=== PATIENT | female | born 1960 | race Caucasian/White ===

== ENCOUNTER 2017-11-26 11:23 | Inpatient (IN) | payer MEDICARE ==
[~2017-11-26] VITALS: Ht 165.1 cm; Wt 88.0 kg
--- NOTE | 2017-11-26 12:25 | Diagnostic Imaging Report ---
PROCEDURE: X-RAY CHEST, TWO VIEWS COMPARISON: None. INDICATIONS: COUGH SINCE DIPIKA FINDINGS: The lungs are reasonably well inflated. There are patchy consolidations in the right lower lung and perihilar region of the left lung. No pleural effusion or pneumothorax. Heart size is normal. No acute osseous abnormalities. CONCLUSION: Patchy bilateral consolidations suggest multifocal pneumonia in the clinical setting of persistent cough. Followup chest radiograph in 8 weeks is suggested to document resolution. Dictated by: Julien Gordillo M.D. on 11/26/2017 at 12:33 Electronically approved by: Julien Gordillo M.D. on 11/26/2017 at 12:33
[2017-11-26] MEDS ORDERED: AZITHROMYCIN 500MG/NS 250 ML 250 ML IV STA (12:26)
[2017-11-26] MEDS ORDERED: CEFTRIAXONE SOD 1 GM VIAL IV ONE (12:30)
[2017-11-26 13:02] LABS: BASOPHILS % 0.2 % (0.0-1.0); EOSINOPHILS # (AUTO) 0.1 (0.0-0.4); EOSINOPHILS % 0.5 % (0.0-6.0); HEMATOCRIT 34.7 % (34.2-44.1); HEMOGLOBIN 11.8 g/dL (12.0-16.0); LYMPHOCYTES # (AUTO) 2.3 (1.0-3.2); LYMPHOCYTES % 14.8 % (18.0-39.1); MEAN CORPUSCULAR HEMOGLOBIN 26.5 pg (28-32); MONOCYTES # (AUTO) 1.6 (0.2-0.8); MONOCYTES % 10.4 % (4.4-11.3); NEUTROPHILS # (AUTO) 11.3 (2.1-6.9); NEUTROPHILS % 73.7 % (38.7-80.0); PLATELET COUNT 517 x10e3/uL (140-360); RED BLOOD COUNT 4.45 x10e6/uL (3.6-5.1); RED CELL DISTRIBUTION WIDTH 14.5 % (11.7-14.4)
[2017-11-26 13:23] LABS: ALANINE AMINOTRANSFERASE 65 IU/L (0-55); ALBUMIN 2.6 g/dL (3.5-5.0); ALBUMIN/GLOBULIN RATIO 0.4 (0.8-2.0); ALKALINE PHOSPHATASE 104 IU/L (40-150); ANION GAP 15.8 mmol/L (8-16); BLOOD UREA NITROGEN 10 mg/dL (7-26); BUN/CREATININE RATIO 13 (6-25); CALCIUM 9.7 mg/dL (8.4-10.2); CARBON DIOXIDE 19 mmol/L (22-29); CHLORIDE 103 mmol/L (98-107); CREATININE, SERUM 0.75 mg/dL (0.57-1.11); EST GLOMERULAR FILTRATION RATE > 60 ML/MIN (60-); GLUCOSE 122 mg/dL (74-118); SODIUM 135 mmol/L (136-145)
[2017-11-26 13:25] LABS: POTASSIUM 2.8 mmol/L (3.5-5.1)
[2017-11-26] MEDS ORDERED: AZITHROMYCIN 500MG/SOD CHL 0.9% 250ML BAG IV SCH (14:00)
[2017-11-26] MEDS: CEFTRIAXONE SOD 1 GM VIAL IV SCH (14:59)
[2017-11-26] MEDS: SODIUM CHLORIDE 0.9% 1000ML 1,000 ML IV SCH ×2 (14:59→22:45)
[2017-11-26] MEDS: AZITHROMYCIN 500MG/NS 250 ML 250 ML IV SCH (14:59)
[2017-11-26 15:34] LABS: LYMPHOCYTES % (MANUAL) 15 % (19-48); MONOCYTES % (MANUAL) 12 % (3.4-9.0); NEUTROPHILS % (MANUAL) 73 % (40-74); PLATELET ESTIMATE SLIGHTLY INCREASED; RBC MORPHOLOGY COMMENT NORMAL
[2017-11-26] MEDS ORDERED: POTASSIUM CHLORIDE 20 MEQ TAB CR PO STA (16:32)
[2017-11-26] MEDS: POTASSIUM CHLORIDE 20 MEQ TAB CR PO SCH (16:34)
[2017-11-26] MEDS ORDERED: STRIBILD TABLE1 EACH PO (18:39)
[2017-11-26] MEDS ORDERED: TOPAMAX25 MG PO (18:39)
[2017-11-26] MEDS ORDERED: LATUDA20 MG PO (18:39)
[2017-11-26] MEDS ORDERED: PROZAC20 MG PO (18:39)
[2017-11-26] MEDS ORDERED: ULTRAM50 MG PO (18:39)
[2017-11-26] MEDS ORDERED: OMEPRAZOLE40 MG PO (18:39)
[2017-11-26] MEDS ORDERED: CRESTOR10 MG PO (18:39)
[2017-11-26] MEDS ORDERED: CELEBREX100 MG PO (18:39)
[2017-11-26] MEDS ORDERED: TIZANIDINE HCL4 MG PO (18:39)
[2017-11-26] MEDS ORDERED: AMBIEN5 MG PO (18:39)
--- NOTE | 2017-11-26 19:40 | Diagnostic Imaging Report ---
CT chest without enhancement CPT code: 03691 INDICATION: Pneumonia, HIV TECHNIQUE: Thin collimation axial images obtained from the thoracic inlet to the level of the diaphragm without intravenous contrast. RADIATION DOSE: Total DLP: 458.6 mGy*cm Estimated effective dose: (DLP x 0.015 x size factor) mSv CTDIvol has been reviewed. It is below the limits set by the Radiation Protocol Committee (RPC). COMPARISON: Chest x-ray 1203 hours. CHEST FINDINGS: Lymph nodes: No enlarged axillary, supraclavicular lymph nodes. Mediastinal lymph nodes measure up to 8 x 13 mm. Hilar lymphadenopathy cannot be assessed given the lack of intravenous contrast. Thyroid: Normal in size without mass in the visualized parenchyma.. Mediastinum: The heart is normal in size. There is a trace pericardial effusion. The esophagus is normal. Lungs: Right: Multifocal groundglass airspace opacities throughout the lung. There is mild bronchiectasis in the affected areas. There is mild reticulation in the lung periphery particularly in the affected areas.. Left: Multifocal groundglass airspace opacities are present particularly in the upper lobe and lingula. As with the right lung, there is mild bronchiectasis in the affected areas as well as subpleural reticulation. Pleura: No pleural effusion or pleural based mass. ABDOMEN FINDINGS: No mass or lymphadenopathy in the visualized upper abdomen. Bones: No focal osseous lesions. There are mild degenerative changes of the spine. IMPRESSION: 1. Multifocal pulmonary opacities are suggestive of pneumocystis jirovecii given the patient's history of HIV. 2. No significant lymphadenopathy. Signed by: Dr. Haley Walker MD on 11/26/2017 7:37 PM
[2017-11-26] MEDS: IPRATROPIUM BROMIDE 0.02% 2.5 ML NEB NEB SCH ×2 (20:33→20:34)
[2017-11-26] MEDS: ALBUTEROL SULF 0.083% NEB SOLN 3 ML NEB NEB SCH (20:33)
--- NOTE | 2017-11-26 21:28 | Consultation ---
DATE OF CONSULTATION: November 26, 2017 REASON FOR CONSULTATION: Pneumonia. Thank you so much for asking me to see this patient. HISTORY OF PRESENT ILLNESS: This patient is a 57-year-old female with history of HIV. She is being followed by [facility]. She comes in with few days' history of fever, chills, cough. Patient came to the emergency room where she is being admitted. She is telling me her CD4 cell count is 1200. She is taking antiretroviral medication. She is telling me she has history of diabetes, but she said that she lost weight and since then she is doing good. PAST SURGICAL HISTORY: Hysterectomy. Back surgery. ALLERGIES: NKA. SOCIAL HISTORY: There is no smoking drug abuse or alcohol abuse. REVIEW OF SYSTEMS: GENERAL: At the present time generally she is not feeling well, getting fevers and chills. HEENT: There is no headache, or visual changes, hearing changes. GI: There is no nausea and no vomiting. No diarrhea CARDIAC: There is no arrhythmia. NEUROLOGIC: No seizure activity. She is having shortness of breath and cough. All other systems are within normal limits otherwise. LABORATORY DATA: Reviewed. Chart reviewed. White count 15.3, hemoglobin 11, hemoglobin 34. Sodium 135, potassium 2.8. Influenza A and B were negative. Chest x-ray shows patchy bilateral consolidations. PHYSICAL EXAMINATION: GENERAL: She is alert, oriented and does not seem to be in any acute distress. VITALS: Stable, currently afebrile. HEENT: She is not icteric. NECK: Supple. CHEST: Few crackles bilaterally. COR: S1 and S2. ABDOMEN: Soft. IMPRESSION: Pneumonia in a patient with HIV and AIDS, community acquired. Concerned about pneumocystis carinii pneumonia. I agree with the choice of antibiotic of Rocephin and azithromycin. Will add Bactrim. Will get a CD4 cell count. Will follow with you. Thank you for asking me to see this patient. Job#: [id number]
[2017-11-26] MEDS: TRIMETHOPRIM/SULFAMETHOXAZOLE 160-800 MG TAB PO SCH (21:39)
[2017-11-27] MEDS: ALBUTEROL SULF 0.083% NEB SOLN 3 ML NEB NEB SCH ×7 (00:20→20:45)
--- NOTE | 2017-11-27 01:24 | History and Physical ---
CHIEF COMPLAINT: Pneumonia, fever, shortness of breath, and HIV. HISTORY: Patient is a 57-year-old female with a history of HIV. The patient is followed by [facility]. She came in with a history of 3-4 days of fever, chills and cough. The patient is in the emergency room and now has been admitted. She is waiting for a room in the hospital. The patient has a previous CD4 cell count of 1200. She is on antiretroviral medications. The patient has a history of diabetes, type 2 and hypertension. She is stable at this time. PAST MEDICAL HISTORY: Diabetes, type 2, HIV with CD4 count of 1200. PAST SURGICAL HISTORY: Hysterectomy and back surgery. SOCIAL HISTORY: Patient does not smoke or use alcohol. No regular drugs. ALLERGIES: NO KNOWN ALLERGIES. HOME MEDICATIONS: List is reviewed. REVIEW OF SYSTEMS: Increasing shortness of breath, fever and cough. PHYSICAL EXAMINATION VITAL SIGNS: Temperature is 99.9, blood pressure is 91/52, pulse rate is 96, respirations 18. GENERAL: The patient is not in acute distress. HEENT: Normocephalic, atraumatic and anicteric. NECK: Supple grossly. PULMONARY: Diminished breath sounds bilaterally with coarses. CARDIOVASCULAR: S1 and S2. Regular rate and rhythm. ABDOMEN: Soft. Positive bowel sounds. Grossly nontender. No distention. EXTREMITIES: No gross cyanosis or edema. NEUROLOGIC: No gross focal deficit. WBC 15.3, hemoglobin 11.8, hematocrit 34.7, and platelet is 517,000. Chemistry: Sodium is 135, potassium is 2.8, chloride 108, bicarb 19, BUN is 10, creatinine 0.7, glucose is 122. IMPRESSION 1. Sepsis with shock and low blood pressure: Intravenous fluid boluses. 2. History of human immunodeficiency virus. 3. Immunosuppressed stage. 4. Hypokalemia. PLAN: IV fluid boluses. Keep blood pressure up. IV antibiotics. Consultation with Dr. Shields. Resume home medications. Replace electrolytes. Repeat lab work. Job#: [id number] SD
[2017-11-27 01:25] LABS: ABG PH 7.5 (7.31-7.41)
[2017-11-27] MEDS: IPRATROPIUM BROMIDE 0.02% 2.5 ML NEB NEB SCH ×4 (03:58→17:30)
[2017-11-27 05:19] LABS: BASOPHILS % 0.3 % (0.0-1.0); EOSINOPHILS # (AUTO) 0.2 (0.0-0.4); EOSINOPHILS % 1.2 % (0.0-6.0); HEMATOCRIT 28.3 % (34.2-44.1); HEMOGLOBIN 9.5 g/dL (12.0-16.0); LYMPHOCYTES # (AUTO) 4.1 (1.0-3.2); LYMPHOCYTES % 30.7 % (18.0-39.1); MEAN CORPUSCULAR HEMOGLOBIN 26.3 pg (28-32); MEAN CORPUSCULAR HGB CONC 33.6 g/dL (31-35); MEAN CORPUSCULAR VOLUME 78.4 fL (81-99); MONOCYTES # (AUTO) 1.8 (0.2-0.8); MONOCYTES % 13.4 % (4.4-11.3); NEUTROPHILS # (AUTO) 7.2 (2.1-6.9); PLATELET COUNT 465 x10e3/uL (140-360); RED BLOOD COUNT 3.61 x10e6/uL (3.6-5.1); RED CELL DISTRIBUTION WIDTH 14.4 % (11.7-14.4)
[2017-11-27 05:34] LABS: ANION GAP 12.5 mmol/L (8-16); BLOOD UREA NITROGEN 6 mg/dL (7-26); BUN/CREATININE RATIO 9 (6-25); CALCIUM 8.7 mg/dL (8.4-10.2); CARBON DIOXIDE 18 mmol/L (22-29); CHLORIDE 109 mmol/L (98-107); CREATININE, SERUM 0.65 mg/dL (0.57-1.11); EST GLOMERULAR FILTRATION RATE > 60 ML/MIN (60-); GLUCOSE 117 mg/dL (74-118); MAGNESIUM 1.9 MG/DL (1.3-2.1); PHOSPHORUS 2.9 MG/DL (2.3-4.7); SODIUM 137 mmol/L (136-145)
[2017-11-27 05:39] LABS: POTASSIUM 2.5 mmol/L (3.5-5.1)
[2017-11-27] MEDS ORDERED: POTASSIUM CHLORIDE 20 MEQ TAB CR PO STA (05:43)
[2017-11-27] MEDS: TRIMETHOPRIM/SULFAMETHOXAZOLE 160-800 MG TAB PO SCH ×2 (05:53→14:12)
[2017-11-27] MEDS: SODIUM CHLORIDE 0.9% 1000ML 1,000 ML IV SCH ×3 (05:53→22:57)
[2017-11-27 05:57] LABS: THYROID STIMULATING HORMONE 0.706 uIU/mL (0.350-4.940)
[2017-11-27] MEDS: AZITHROMYCIN 500MG/NS 250 ML 250 ML IV SCH (09:45)
[2017-11-27] MEDS: POTASSIUM CHLORIDE 20 MEQ TAB CR PO SCH ×2 (09:45→17:08)
[2017-11-27] MEDS: CEFTRIAXONE SOD 1 GM VIAL IV SCH (14:12)
[2017-11-27] MEDS: ACETAMINOPHEN 325 MG TAB PO PRN (17:10)
[2017-11-27] MEDS: METHYLPREDNISOLONE SOD SUCC 40 MG/ML VIAL IV SCH (18:45)
--- NOTE | 2017-11-27 18:53 | Progress Note ---
DATE: November 27, 2017 SUBJECTIVE: Mrs. Alarcon says she is not feeling well. She is short of breath. Her laboratory data was reviewed. Her sodium 135, potassium 2.8, creatinine 0.7. Her cultures no growth so far. CT of the chest showing multifocal pulmonary opacities suggestive of pneumocystis jiroveci. IMPRESSION: Pneumocystis carinii. RECOMMENDATIONS: Will discontinue the Bactrim p.o. and switch her IV Bactrim. We will start steroid. May consult critical care. She may end up on a ventilator. Will follow with you. Job#: [id number]
[2017-11-27 21:10] VITALS: BP 104/67
[2017-11-27 21:15] VITALS: BP 104/67
--- NOTE | 2017-11-27 21:43 | Diagnostic Imaging Report ---
EXAM: CHEST SINGLE (PORTABLE), AP 1 view DATE: 11/27/2017 5:00 AM Time stamp on exam: 0617 hours INDICATION: Shortness of breath, pneumonia, cough COMPARISON: PA and lateral view of the chest November 26, 2017 FINDINGS: LINES/TUBES: None LUNGS: Stable airspace opacities bilaterally. PLEURA: No effusions or pneumothorax. HEART AND MEDIASTINUM: Normal size and contour. BONES AND SOFT TISSUES: No acute findings. IMPRESSION: Stable findings of multifocal atypical pneumonia. Signed by: Dr. Sagrario Kelly M.D. on 11/27/2017 9:39 PM
[2017-11-27] MEDS: ZOLPIDEM TARTRATE 5 MG TAB PO PRN (22:57)
[2017-11-27] MEDS: TRIMETHOPRIM/SULFAMETHOXAZOLE 160 MG in DEXTROSE 5% 250ML 250 ML IV SCH (22:57)
[2017-11-28] VITALS (8 sets, daily range): BP systolic 91–119; BP diastolic 62–84
[2017-11-28] MEDS: IPRATROPIUM BROMIDE 0.02% 2.5 ML NEB NEB SCH ×6 (00:15→22:55)
[2017-11-28] MEDS: ALBUTEROL SULF 0.083% NEB SOLN 3 ML NEB NEB SCH ×7 (00:15→22:55)
[2017-11-28] MEDS ORDERED: VANCOMYCIN 1GM/NS 250 ML 250 ML IV ONE (04:30)
[2017-11-28] MEDS: PIPER-TAZ 3.375 GM 50 ML IV SCH ×4 (05:30→23:49)
[2017-11-28] MEDS: SODIUM CHLORIDE 0.9% 1000ML 1,000 ML IV SCH ×2 (05:54→23:40)
[2017-11-28] MEDS: METHYLPREDNISOLONE SOD SUCC 40 MG/ML VIAL IV SCH ×2 (06:26→17:26)
[2017-11-28] MEDS: ACETAMINOPHEN 325 MG TAB PO PRN (06:40)
[2017-11-28] MEDS: TRIMETHOPRIM/SULFAMETHOXAZOLE 160 MG in DEXTROSE 5% 250ML 250 ML IV SCH ×3 (08:30→17:10)
[2017-11-28] MEDS ORDERED: STRIBILD PO SCH (09:00)
[2017-11-28] MEDS ORDERED: LURASIDONE HCL 60 MG PO SCH (09:00)
[2017-11-28] MEDS ORDERED: [UNRECOGNIZED DRUG - OTHER] PO SCH (09:00)
[2017-11-28] MEDS ORDERED: [UNRECOGNIZED DRUG - REMARK] PO SCH (09:00)
[2017-11-28 09:30] LABS: ABG HCO3 -8 mmol/L (23-28); ABG PCO2 30 mmHg (41-51); ABG PH 7.37 (7.31-7.41); ABG PO2 157 mmHg (80-105)
[2017-11-28] MEDS: PANTOPRAZOLE SOD 40 MG TABEC PO SCH ×2 (09:54→17:10)
[2017-11-28] MEDS: POTASSIUM CHLORIDE 20 MEQ TAB CR PO SCH ×2 (09:54→17:10)
[2017-11-28] MEDS: CELECOXIB 100 MG CAP PO SCH (09:57)
[2017-11-28] MEDS: OSELTAMIVIR PHOSPHATE 75 MG CAP PO SCH ×2 (09:57→17:11)
[2017-11-28] MEDS: TOPIRAMATE 25 MG TAB PO SCH ×3 (09:57→20:47)
[2017-11-28] MEDS: HEPARIN SOD (PORCINE) 5,000 UNIT/ML VIAL SC SCH ×2 (09:57→20:48)
[2017-11-28] MEDS: FLUOXETINE HCL 20 MG CAP PO SCH (09:57)
[2017-11-28] MEDS: TIZANIDINE HCL 4 MG TAB PO SCH ×2 (09:57→17:11)
[2017-11-28] MEDS: AZITHROMYCIN 500MG/NS 250 ML 250 ML IV SCH (10:11)
--- NOTE | 2017-11-28 10:36 | Diagnostic Imaging Report ---
PROCEDURE:CHEST SINGLE (PORTABLE) TECHNIQUE:Portable AP chest INDICATION:Pneumonia COMPARISON:[facility], DX, CHEST SINGLE (PORTABLE), 11/27/2017, 6:17. FINDINGS: See conclusion. CONCLUSION: 1. Progressive bilateral airspace and interstitial opacity suggesting worsening pulmonary edema and/or pneumonia. No gross cavitation. 2. Stable cardiomediastinal silhouette, with upper limits of normal heart size for technique. 3. No sizable pleural effusion. Dictated by: Tristin Cantu M.D. on 11/28/2017 at 10:44 Electronically approved by: Tristin Cantu M.D. on 11/28/2017 at 10:44
--- NOTE | 2017-11-28 10:51 | Consultation ---
DATE OF CONSULTATION: PULMONARY CONSULTATION Called because of respiratory distress requiring increasing amounts of nasal oxygen and nonrebreather mask and subsequently BiPAP. She was seen this morning. She is comfortable on BiPAP, and has difficulty talking for long periods of time. Saturations are 100%. She has a history of HIV/AIDS diagnosed in 2006. Followed at [facility]. She presented with fever and cough. She thought she had the flu. Her pnqann-pm-cyo was sick and her daughter is becoming sick. She also had diarrhea. History of smoking. MEDICATIONS: Include Celebrex, Prilosec, Stribild, Prozac, Latuda, omeprazole, Crestor, tizanidine, Topamax, tramadol, and sulfadine. She has a history of CD4 count recently of 1200, history of diabetes, now controlled with diet, hypertension, hyperlipidemia. She had a hysterectomy and back surgery. Promises to quit smoking. Was hypotensive on admission. Received fluid boluses. PHYSICAL EXAMINATION GENERAL: Is anxious but comfortable. Able to converse. VITALS: Temperature 99, pulse 108, respirations 32, blood pressure 119/80. HEENT: Head is normocephalic and atraumatic. LUNGS: Bilateral rales. HEART: Regular rhythm. ABDOMEN: Nontender. EXTREMITIES: Nonedematous. She is on BiPAP. There are no ICU beds at this time. She may require intubation and mechanical ventilator support. She wishes to defer that at this time, but it is agreeable should it be necessary to save her life. Bronchoscopy is a consideration, but she will likely require mechanical ventilation afterwards. As I said, there are no ICU beds. Will broaden antibiotic cover. Complete influenza. Check stool studies. Add Zosyn and 1 dose of vancomycin. Discussed with Dr. Shields. Currently, on IV Bactrim for presumed PCP pneumonia. Thank you for this kind referral. Job#: [id number] AL
[2017-11-28 13:21] LABS: ANION GAP 11.1 mmol/L (8-16); BLOOD UREA NITROGEN < 5 mg/dL (7-26); CARBON DIOXIDE 19 mmol/L (22-29); CHLORIDE 111 mmol/L (98-107); CREATININE, SERUM 0.66 mg/dL (0.57-1.11); EST GLOMERULAR FILTRATION RATE > 60 ML/MIN (60-); GLUCOSE 179 mg/dL (74-118); POTASSIUM 4.1 mmol/L (3.5-5.1); SODIUM 137 mmol/L (136-145)
[2017-11-28 13:27] LABS: BUN/CREATININE RATIO 8 (6-25)
[2017-11-28] MEDS: TRAMADOL HCL 50 MG TAB PO PRN ×2 (15:02→22:11)
[2017-11-28] MEDS: SIMVASTATIN 20 MG TAB PO SCH (20:47)
[2017-11-29] VITALS (8 sets, daily range): BP systolic 96–112; BP diastolic 52–67
[2017-11-29] MEDS: TRIMETHOPRIM/SULFAMETHOXAZOLE 160 MG in DEXTROSE 5% 250ML 250 ML IV SCH ×3 (00:35→16:38)
[2017-11-29] MEDS: IPRATROPIUM BROMIDE 0.02% 2.5 ML NEB NEB SCH ×6 (03:05→23:30)
[2017-11-29] MEDS: ALBUTEROL SULF 0.083% NEB SOLN 3 ML NEB NEB SCH ×6 (03:05→23:30)
[2017-11-29] MEDS: METHYLPREDNISOLONE SOD SUCC 40 MG/ML VIAL IV SCH ×2 (05:48→18:02)
[2017-11-29] MEDS: PIPER-TAZ 3.375 GM 50 ML IV SCH ×4 (05:48→23:30)
[2017-11-29 05:58] LABS: BASOPHILS % 0.2 % (0.0-1.0); HEMATOCRIT 31.7 % (34.2-44.1); HEMOGLOBIN 10.5 g/dL (12.0-16.0); LYMPHOCYTES % 10.4 % (18.0-39.1); MEAN CORPUSCULAR HEMOGLOBIN 26.4 pg (28-32); MEAN CORPUSCULAR HGB CONC 33.1 g/dL (31-35); MEAN CORPUSCULAR VOLUME 79.6 fL (81-99); MONOCYTES # (AUTO) 1.4 (0.2-0.8); MONOCYTES % 7.3 % (4.4-11.3); NEUTROPHILS # (AUTO) 15.7 (2.1-6.9); NEUTROPHILS % 81.5 % (38.7-80.0); PLATELET COUNT 512 x10e3/uL (140-360); RED BLOOD COUNT 3.98 x10e6/uL (3.6-5.1); RED CELL DISTRIBUTION WIDTH 14.7 % (11.7-14.4)
[2017-11-29 06:17] LABS: INR 1.13; PROTHROMBIN TIME 15.1 seconds (11.9-14.5)
[2017-11-29 06:22] LABS: ANION GAP 13.3 mmol/L (8-16); BLOOD UREA NITROGEN 7 mg/dL (7-26); BUN/CREATININE RATIO 11 (6-25); CALCIUM 9.6 mg/dL (8.4-10.2); CARBON DIOXIDE 18 mmol/L (22-29); CHLORIDE 109 mmol/L (98-107); CREATININE, SERUM 0.65 mg/dL (0.57-1.11); EST GLOMERULAR FILTRATION RATE > 60 ML/MIN (60-); GLUCOSE 86 mg/dL (74-118); POTASSIUM 4.3 mmol/L (3.5-5.1); SODIUM 136 mmol/L (136-145)
--- NOTE | 2017-11-29 06:35 | Diagnostic Imaging Report ---
EXAM: CHEST SINGLE (PORTABLE), AP 1 view DATE: 11/29/2017 7:00 AM Time stamp on exam: 0604 hours INDICATION: Pneumonia COMPARISON: AP view of the chest April 28, 2018 FINDINGS: LINES/TUBES: None LUNGS: Stable airspace opacities bilaterally PLEURA: No effusions or pneumothorax. HEART AND MEDIASTINUM: Normal size and contour. BONES AND SOFT TISSUES: No acute findings. IMPRESSION: Stable findings of multifocal atypical pneumonia. Signed by: Dr. Sagrario Kelly M.D. on 11/29/2017 6:31 AM
[2017-11-29] MEDS: HEPARIN SOD (PORCINE) 5,000 UNIT/ML VIAL SC SCH ×2 (09:44→21:21)
[2017-11-29] MEDS: AZITHROMYCIN 500MG/NS 250 ML 250 ML IV SCH (09:44)
[2017-11-29] MEDS: TOPIRAMATE 25 MG TAB PO SCH ×3 (09:45→21:20)
[2017-11-29] MEDS: OSELTAMIVIR PHOSPHATE 75 MG CAP PO SCH ×2 (09:45→16:38)
[2017-11-29] MEDS: POTASSIUM CHLORIDE 20 MEQ TAB CR PO SCH ×2 (09:45→16:38)
[2017-11-29] MEDS: CELECOXIB 100 MG CAP PO SCH (09:45)
[2017-11-29] MEDS: TIZANIDINE HCL 4 MG TAB PO SCH ×2 (09:45→16:38)
[2017-11-29] MEDS: FLUOXETINE HCL 20 MG CAP PO SCH (09:45)
[2017-11-29] MEDS: PANTOPRAZOLE SOD 40 MG TABEC PO SCH ×2 (09:45→16:38)
[2017-11-29] MEDS: SODIUM CHLORIDE 0.9% 1000ML 1,000 ML IV SCH (19:16)
[2017-11-29] MEDS ORDERED: DEXMEDETOMIDINE HCL 200 MCG in SODIUM CHLORIDE 0.9% 50ML 48 ML IV SCH (20:00)
[2017-11-29] MEDS: [UNRECOGNIZED DRUG - REMARK] PO SCH (21:20)
[2017-11-29] MEDS: STRIBILD PO SCH (21:20)
[2017-11-29] MEDS: SIMVASTATIN 20 MG TAB PO SCH (21:20)
[2017-11-29 21:28] LABS: ABG PH 7.38 (7.31-7.41)
[2017-11-29] MEDS: TRAMADOL HCL 50 MG TAB PO PRN (22:26)
[2017-11-30] VITALS (8 sets, daily range): BP systolic 94–112; BP diastolic 57–66
[2017-11-30] MEDS: TRIMETHOPRIM/SULFAMETHOXAZOLE 160 MG in DEXTROSE 5% 250ML 250 ML IV SCH ×3 (00:03→16:30)
[2017-11-30] MEDS: ALBUTEROL SULF 0.083% NEB SOLN 3 ML NEB NEB SCH ×6 (03:15→23:00)
[2017-11-30] MEDS: IPRATROPIUM BROMIDE 0.02% 2.5 ML NEB NEB SCH ×6 (03:15→23:00)
[2017-11-30] MEDS: PIPER-TAZ 3.375 GM 50 ML IV SCH ×3 (05:35→18:00)
[2017-11-30] MEDS: METHYLPREDNISOLONE SOD SUCC 40 MG/ML VIAL IV SCH ×2 (05:35→18:39)
[2017-11-30] MEDS: TIZANIDINE HCL 4 MG TAB PO SCH ×2 (10:15→17:00)
[2017-11-30] MEDS: CELECOXIB 100 MG CAP PO SCH (10:15)
[2017-11-30] MEDS: OSELTAMIVIR PHOSPHATE 75 MG CAP PO SCH ×2 (10:15→17:00)
[2017-11-30] MEDS: AZITHROMYCIN 500MG/NS 250 ML 250 ML IV SCH (10:15)
[2017-11-30] MEDS: HEPARIN SOD (PORCINE) 5,000 UNIT/ML VIAL SC SCH ×2 (10:15→21:05)
[2017-11-30] MEDS: PANTOPRAZOLE SOD 40 MG TABEC PO SCH ×2 (10:15→17:00)
[2017-11-30] MEDS: FLUOXETINE HCL 20 MG CAP PO SCH (10:15)
[2017-11-30] MEDS: TOPIRAMATE 25 MG TAB PO SCH ×3 (11:00→21:03)
[2017-11-30] MEDS ORDERED: DEXMEDETOMIDINE HCL 200 MCG in SODIUM CHLORIDE 0.9% 50ML 48 ML IV PRN (11:45)
[2017-11-30] MEDS: SODIUM CHLORIDE 0.9% 1000ML 1,000 ML IV SCH (15:10)
[2017-11-30] MEDS: STRIBILD PO SCH (21:03)
[2017-11-30] MEDS: SIMVASTATIN 20 MG TAB PO SCH (21:03)
[2017-11-30] MEDS: [UNRECOGNIZED DRUG - REMARK] PO SCH (21:03)
[2017-11-30] MEDS: ZOLPIDEM TARTRATE 5 MG TAB PO PRN (21:23)
[2017-11-30] MEDS: TRAMADOL HCL 50 MG TAB PO PRN (21:23)
[2017-12-01] VITALS (53 sets, daily range): BP systolic 85–129; BP diastolic 54–79
[2017-12-01] MEDS: TRIMETHOPRIM/SULFAMETHOXAZOLE 160 MG in DEXTROSE 5% 250ML 250 ML IV SCH ×3 (02:05→16:30)
[2017-12-01] MEDS ORDERED: SODIUM CHLORIDE 0.9% 1000ML 1,000 ML ONE (02:43)
[2017-12-01] MEDS: ALBUTEROL SULF 0.083% NEB SOLN 3 ML NEB NEB SCH ×6 (03:00→23:45)
[2017-12-01] MEDS: IPRATROPIUM BROMIDE 0.02% 2.5 ML NEB NEB SCH ×6 (03:00→23:45)
[2017-12-01] MEDS: PIPER-TAZ 3.375 GM 50 ML IV SCH ×5 (04:52→23:41)
[2017-12-01] MEDS: METHYLPREDNISOLONE SOD SUCC 40 MG/ML VIAL IV SCH ×2 (05:06→18:55)
[2017-12-01 06:01] LABS: BASOPHILS % 0.1 % (0.0-1.0); HEMATOCRIT 29.5 % (34.2-44.1); HEMOGLOBIN 9.9 g/dL (12.0-16.0); LYMPHOCYTES # (AUTO) 1.1 (1.0-3.2); LYMPHOCYTES % 7.4 % (18.0-39.1); MEAN CORPUSCULAR HEMOGLOBIN 26.5 pg (28-32); MEAN CORPUSCULAR HGB CONC 33.6 g/dL (31-35); MEAN CORPUSCULAR VOLUME 79.1 fL (81-99); MONOCYTES # (AUTO) 0.7 (0.2-0.8); MONOCYTES % 4.6 % (4.4-11.3); NEUTROPHILS # (AUTO) 12.4 (2.1-6.9); NEUTROPHILS % 86.6 % (38.7-80.0); PLATELET COUNT 527 x10e3/uL (140-360); RED BLOOD COUNT 3.73 x10e6/uL (3.6-5.1); RED CELL DISTRIBUTION WIDTH 14.6 % (11.7-14.4)
[2017-12-01 06:18] LABS: ALANINE AMINOTRANSFERASE 66 IU/L (0-55); ALBUMIN/GLOBULIN RATIO 0.4 (0.8-2.0); ALKALINE PHOSPHATASE 87 IU/L (40-150); ANION GAP 10.9 mmol/L (8-16); BLOOD UREA NITROGEN 8 mg/dL (7-26); BUN/CREATININE RATIO 11 (6-25); CALCIUM 8.9 mg/dL (8.4-10.2); CARBON DIOXIDE 21 mmol/L (22-29); CHLORIDE 103 mmol/L (98-107); EST GLOMERULAR FILTRATION RATE > 60 ML/MIN (60-); GLUCOSE 167 mg/dL (74-118); POTASSIUM 3.9 mmol/L (3.5-5.1); SODIUM 131 mmol/L (136-145)
[2017-12-01] MEDS: OSELTAMIVIR PHOSPHATE 75 MG CAP PO SCH ×2 (09:00→18:21)
[2017-12-01] MEDS: TOPIRAMATE 25 MG TAB PO SCH ×3 (09:00→20:46)
[2017-12-01] MEDS: PANTOPRAZOLE SOD 40 MG TABEC PO SCH ×2 (09:00→18:18)
[2017-12-01] MEDS: TIZANIDINE HCL 4 MG TAB PO SCH ×2 (09:00→18:32)
[2017-12-01] MEDS: AZITHROMYCIN 500MG/NS 250 ML 250 ML IV SCH (09:00)
[2017-12-01] MEDS ORDERED: PROPOFOL IV EMULSION 10MG/ML 100 ML ONE ×2 (09:34→11:31)
[2017-12-01] MEDS ORDERED: MIDAZOLAM HCL 2 MG/2 ML VIAL ONE ×2 (09:58→14:36)
[2017-12-01] MEDS: HEPARIN SOD (PORCINE) 5,000 UNIT/ML VIAL SC SCH ×2 (10:00→20:47)
--- NOTE | 2017-12-01 10:17 | Diagnostic Imaging Report ---
EXAM: XR CHEST 1 VIEW DATE: 12/01/2017 9:49 AM INDICATION: Intubation COMPARISON: 11/29/2017 FINDINGS: Lines and Tubes: ET tube tip above the garcia. Heart and Mediastinum: No acute findings. Lungs and Pleura: Moderate bilateral airspace opacities are present which could represent edema and/or pneumonia. Small effusions present. Bones and Soft Tissues: No acute findings. IMPRESSION: 1. ET tube with tip above garcia. 2. Moderate edema with superimposed pneumonia possible. Signed by: Dr. Enoc Young MD on 12/01/2017 10:07 AM
--- NOTE | 2017-12-01 11:22 | Diagnostic Imaging Report ---
EXAM: CHEST XRAY LINE PLACEMENT DATE: 12/01/2017 11:02 AM INDICATION: PICC line COMPARISON: 12/01/2017 at 0945 FINDINGS: ET tube with tip above garcia stable. Interval placement left PICC with tip overlying SVC. Cardiomegaly, mild to moderate bilateral airspace opacities suggesting edema and/or pneumonia, and probable small effusions, stable. IMPRESSION: Left PICC. Exam otherwise stable. Signed by: Dr. Enoc Young MD on 12/01/2017 11:18 AM
[2017-12-01] MEDS: SODIUM CHLORIDE 0.9% 1000ML 1,000 ML IV SCH (13:00)
[2017-12-01] MEDS ORDERED: MIDAZOLAM HCL 2 MG/2 ML VIAL IV ONE (13:00)
[2017-12-01 13:21] LABS: ABG HCO3 23 mmol/L (23-28); ABG PCO2 38 mmHg (41-51); ABG PH 7.39 (7.31-7.41); ABG PO2 180 mmHg (80-105)
[2017-12-01] MEDS ORDERED: SUCCINYLCHOLINE CHLORIDE 20 MG/ML 10ML VIAL ONE (14:36)
[2017-12-01] MEDS ORDERED: ETOMIDATE 40 MG/ 20ML VIAL IV ONE (14:36)
--- NOTE | 2017-12-01 16:55 | Diagnostic Imaging Report ---
EXAM: CHEST SINGLE (PORTABLE) DATE: 12/01/2017 4:09 PM INDICATION: 2. Placement COMPARISON: 12/01/2017 at 1112 FINDINGS: ET tube not visualized. NG tube placed with tip below GE junction. Basilar opacities partially visualized. Upper chest excluded. IMPRESSION: NG tube satisfactory position. Signed by: Dr. Enoc Young MD on 12/01/2017 4:51 PM
[2017-12-01] MEDS: FUROSEMIDE INJ 10 MG/ML 2 ML VIAL IV SCH (18:00)
[2017-12-01] MEDS: CELECOXIB 100 MG CAP PO SCH (18:17)
[2017-12-01] MEDS: FLUOXETINE HCL 20 MG CAP PO SCH (18:18)
[2017-12-01] MEDS: POTASSIUM CHLORIDE 20 MEQ TAB CR PO SCH (18:20)
[2017-12-01] MEDS: [UNRECOGNIZED DRUG - REMARK] PO SCH (20:44)
[2017-12-01] MEDS: STRIBILD PO SCH (20:44)
[2017-12-01] MEDS: SIMVASTATIN 20 MG TAB PO SCH (20:47)
[2017-12-01] MEDS: PROPOFOL IV EMULSION 10MG/ML 100 ML IV PRN ×2 (21:19→23:30)
[2017-12-02] VITALS (74 sets, daily range): BP systolic 73–122; BP diastolic 47–81
[2017-12-02] MEDS: TRIMETHOPRIM/SULFAMETHOXAZOLE 160 MG in DEXTROSE 5% 250ML 250 ML IV SCH ×4 (01:17→23:47)
[2017-12-02] MEDS: PROPOFOL IV EMULSION 10MG/ML 100 ML IV PRN ×6 (01:53→22:47)
[2017-12-02] MEDS: IPRATROPIUM BROMIDE 0.02% 2.5 ML NEB NEB SCH ×6 (03:30→23:17)
[2017-12-02] MEDS: ALBUTEROL SULF 0.083% NEB SOLN 3 ML NEB NEB SCH ×6 (03:30→23:17)
[2017-12-02] MEDS: PIPER-TAZ 3.375 GM 50 ML IV SCH ×4 (05:29→23:29)
[2017-12-02] MEDS: METHYLPREDNISOLONE SOD SUCC 40 MG/ML VIAL IV SCH ×2 (05:29→18:32)
[2017-12-02] MEDS: FUROSEMIDE INJ 10 MG/ML 2 ML VIAL IV SCH (05:29)
--- NOTE | 2017-12-02 06:17 | Diagnostic Imaging Report ---
EXAM: CHEST SINGLE (PORTABLE), AP 1 view DATE: 12/02/2017 7:00 AM Time stamp on exam: 0448 hours INDICATION: Respiratory failure COMPARISON: AP view of the chest December 01, 2017 FINDINGS: LINES/TUBES: Endotracheal tube terminates 3 cm above the garcia. Stable nasal/orogastric tube and left approach PICC LUNGS: Stable bilateral airspace opacities PLEURA: No effusions or pneumothorax. HEART AND MEDIASTINUM: Normal size and contour. BONES AND SOFT TISSUES: No acute findings. IMPRESSION: No interval change Signed by: Dr. Sagrario Kelly M.D. on 12/02/2017 6:10 AM
[2017-12-02 06:24] LABS: BASOPHILS % 0.2 % (0.0-1.0); HEMATOCRIT 29.8 % (34.2-44.1); LYMPHOCYTES # (AUTO) 1.4 (1.0-3.2); LYMPHOCYTES % 11.6 % (18.0-39.1); MEAN CORPUSCULAR HEMOGLOBIN 26.3 pg (28-32); MEAN CORPUSCULAR HGB CONC 33.6 g/dL (31-35); MEAN CORPUSCULAR VOLUME 78.4 fL (81-99); MONOCYTES % 8.2 % (4.4-11.3); NEUTROPHILS # (AUTO) 9.2 (2.1-6.9); NEUTROPHILS % 77.9 % (38.7-80.0); PLATELET COUNT 500 x10e3/uL (140-360); RED CELL DISTRIBUTION WIDTH 14.8 % (11.7-14.4)
[2017-12-02 06:56] LABS: ANION GAP 13.7 mmol/L (8-16); BLOOD UREA NITROGEN 10 mg/dL (7-26); BUN/CREATININE RATIO 14 (6-25); CALCIUM 9.2 mg/dL (8.4-10.2); CARBON DIOXIDE 25 mmol/L (22-29); CHLORIDE 105 mmol/L (98-107); EST GLOMERULAR FILTRATION RATE > 60 ML/MIN (60-); GLUCOSE 141 mg/dL (74-118); POTASSIUM 3.7 mmol/L (3.5-5.1); SODIUM 140 mmol/L (136-145)
[2017-12-02] MEDS: DEXMEDETOMIDINE HCL 200 MCG in SODIUM CHLORIDE 0.9% 50ML 48 ML IV PRN ×3 (07:50→21:12)
[2017-12-02] MEDS: AZITHROMYCIN 500MG/NS 250 ML 250 ML IV SCH (09:00)
[2017-12-02] MEDS: FLUOXETINE HCL 20 MG CAP PO SCH (09:00)
[2017-12-02] MEDS: OSELTAMIVIR PHOSPHATE 75 MG CAP PO SCH ×2 (09:00→18:32)
[2017-12-02] MEDS: PANTOPRAZOLE SOD 40 MG TABEC PO SCH (09:00)
[2017-12-02] MEDS: TIZANIDINE HCL 4 MG TAB PO SCH ×2 (09:00→18:34)
[2017-12-02] MEDS: TOPIRAMATE 25 MG TAB PO SCH ×3 (09:00→20:02)
[2017-12-02] MEDS: POTASSIUM CHLORIDE 20 MEQ TAB CR PO SCH (09:00)
[2017-12-02] MEDS: CELECOXIB 100 MG CAP PO SCH (09:00)
[2017-12-02] MEDS: SODIUM CHLORIDE 0.9% 1000ML 1,000 ML IV SCH (09:31)
[2017-12-02] MEDS: HEPARIN SOD (PORCINE) 5,000 UNIT/ML VIAL SC SCH ×2 (09:33→20:06)
[2017-12-02] MEDS ORDERED: LIDOCAINE HCL 4% 50 ML BTL ONE (09:34)
[2017-12-02] MEDS ORDERED: LIDOCAINE JELLY 2% 10ML URO-JET ONE (09:34)
[2017-12-02] MEDS ORDERED: OXYMETAZOLINE HCL 0.05% NAS 1 SPRAY BTL ONE (09:34)
[2017-12-02] MEDS ORDERED: MINERAL OIL STERILE 10ML VIAL ONE (10:02)
[2017-12-02 11:58] LABS: BODY FLUID APPEARANCE SL.CLOUDY; BODY FLUID COLOR YELLOW
[2017-12-02 12:00] LABS: RBC,BODY FLUID 150 cells/uL; WBC,BODY FLUID 117 cells/uL
[2017-12-02 15:13] LABS: LYMPHOCYTES,BODY FLUID 88 %; MONO/MACROPHG,BODY FLUID 5 %; NEUTROPHILS,BODY FLUID 7 %
[2017-12-02] MEDS: PANTOPRAZOLE 40 MG 10ML VIAL IV SCH (17:00)
[2017-12-02] MEDS ORDERED: MIDAZOLAM HCL 2 MG/2 ML VIAL ONE (19:20)
[2017-12-02] MEDS ORDERED: FENTANYL CITRATE/PF 100MCG/2 ML INJ ONE (19:20)
[2017-12-02] MEDS: [UNRECOGNIZED DRUG - REMARK] PO SCH (20:02)
[2017-12-02] MEDS: SIMVASTATIN 20 MG TAB PO SCH (20:02)
[2017-12-02] MEDS: STRIBILD PO SCH (20:02)
[2017-12-03] VITALS (25 sets, daily range): BP systolic 83–108; BP diastolic 42–65
[2017-12-03] MEDS: IPRATROPIUM BROMIDE 0.02% 2.5 ML NEB NEB SCH ×6 (03:10→23:50)
[2017-12-03] MEDS: SODIUM CHLORIDE 0.9% 1000ML 1,000 ML IV SCH ×2 (03:10→22:09)
[2017-12-03] MEDS: ALBUTEROL SULF 0.083% NEB SOLN 3 ML NEB NEB SCH ×5 (03:10→23:50)
[2017-12-03] MEDS: PROPOFOL IV EMULSION 10MG/ML 100 ML IV PRN (04:14)
[2017-12-03] MEDS: DEXMEDETOMIDINE HCL 200 MCG in SODIUM CHLORIDE 0.9% 50ML 48 ML IV PRN (04:15)
[2017-12-03] MEDS: METHYLPREDNISOLONE SOD SUCC 40 MG/ML VIAL IV SCH ×2 (05:28→17:30)
[2017-12-03] MEDS: PIPER-TAZ 3.375 GM 50 ML IV SCH ×4 (05:28→23:43)
--- NOTE | 2017-12-03 06:34 | Operative Report ---
DATE OF PROCEDURE: December 02, 2017 ( Dr. harden says: Correction: The procedure was a bronchoscopy performed today. For some reason, it was typed under the name of Tino Goode. Please remove this document.) She is a patient of Dr. Griselda Govea and Dr. Shields. The patient is respiratory failure. History of HIV AIDS, presumed Pneumocystis pneumonia. The patient required intubation and mechanical ventilation. Ventilator support on December 01. Given her deterioration, despite empiric antibiotics, decision was made to proceed with bronchoscopy. ANESTHESIA: MAC anesthesia provided by [facility]. PROCEDURE: The patient was bronchoscopy using a 7.5 mm endotracheal tube. The endotracheal tube was in good position, approximately 2 cm above the garcia. There was mild tracheal bronchitis, moderate amount of white secretions noted. No obstructing lesions. Bronchial lavage was performed, superior segment, right upper lobe, the bronchoscope was wedged and 3 aliquots of 30 mL saline were instilled. there was moderate O2 desaturation at the end of the procedure, and soon jason back to 100%. Washings were also obtained from the left upper lobe. The patient tolerated the procedure well. Remains on mechanical ventilator support. There was no blood loss during the procedure. Job#: [id number]
--- NOTE | 2017-12-03 06:56 | Diagnostic Imaging Report ---
EXAMINATION: CHEST SINGLE (PORTABLE) INDICATION: Ventilation COMPARISON: 12/02/2017 FINDINGS: TUBES and LINES: Endotracheal, nasogastric tube and left upper extremity PICC line are stable LUNGS: Lungs are not well inflated. There are bibasilar atelectasis. There is perihilar interstitial opacities, consistent with interstitial edema. PLEURA: Trace of left pleural effusion HEART AND MEDIASTINUM: Cardiac size is mildly enlarged. BONES AND SOFT TISSUES: No acute osseous lesion. Soft tissues are unremarkable. UPPER ABDOMEN: No free air under the diaphragm. IMPRESSION: 1. Stable chest with evidence of fluid overload/edema. 2. Tubes and lines are stable. Signed by: Dr. Thompson Pride M.D. on 12/03/2017 6:53 AM
[2017-12-03] MEDS: FLUOXETINE HCL 20 MG CAP PO SCH (09:00)
[2017-12-03] MEDS: OSELTAMIVIR PHOSPHATE 75 MG CAP PO SCH ×2 (09:00→17:00)
[2017-12-03] MEDS: TOPIRAMATE 25 MG TAB PO SCH ×3 (09:00→20:40)
[2017-12-03] MEDS: CELECOXIB 100 MG CAP PO SCH (09:00)
[2017-12-03] MEDS: TIZANIDINE HCL 4 MG TAB PO SCH ×2 (09:00→17:00)
[2017-12-03 10:03] LABS: ABG PCO2 43 mmHg (41-51); ABG PH 7.37 (7.31-7.41)
[2017-12-03 10:04] LABS: ABG HCO3 25 mmol/L (23-28); ABG PO2 91 mmHg (80-105)
[2017-12-03] MEDS: HEPARIN SOD (PORCINE) 5,000 UNIT/ML VIAL SC SCH ×2 (11:52→20:41)
[2017-12-03] MEDS: PANTOPRAZOLE 40 MG 10ML VIAL IV SCH ×2 (11:52→17:00)
[2017-12-03] MEDS: POTASSIUM CHLORIDE 20MEQ/15ML UDC NG SCH (11:52)
[2017-12-03] MEDS: AZITHROMYCIN 500MG/NS 250 ML 250 ML IV SCH (11:52)
[2017-12-03] MEDS: TRIMETHOPRIM/SULFAMETHOXAZOLE 160 MG in DEXTROSE 5% 250ML 250 ML IV SCH ×3 (11:52→23:58)
--- NOTE | 2017-12-03 13:58 | Progress Note ---
DATE: INFECTIOUS DISEASE PROGRESS NOTE Ms. Alarcon seems to be getting better, feeling better. She remains on a vent, but she has no complaints. The patient underwent a bronchoscopy on December 02. There was mild tracheal bronchitis, moderate amount of white secretions. REVIEW OF SYSTEMS: Currently is negative, but she seems alert, oriented and probably ready to be extubated. I told her that that is a decision up to Dr. Lopes and associate. Review of systems otherwise is negative. PHYSICAL EXAMINATION GENERAL: She is alert, comfortable, does not seem to be in acute distress. VITAL SIGNS: Stable. Currently afebrile. HEENT: She does not appear icteric. NECK: Supple. CHEST: Clear. HEART: S1 and S2. No S3 or S4, no murmur. ABDOMEN: Soft. Bowel sounds present. No tenderness. EXTREMITIES: No edema. LAB: White count is 11.86, hemoglobin of 10. Her sodium 140, potassium 3.7, creatinine of 0.70. Her cultures are still pending. IMPRESSION 1. Pneumonia. Concerned about Pneumocystis carinii pneumonia, but her CD4 is elevated. Await a bronchial wash. Continue with the current antibiotics. She is already getting better. 2. Respiratory failure. 3. Human immunodeficiency virus. 4. Will follow with you. Thank you for asking me to see this patient. Job#: [id number] EV
[2017-12-03] MEDS: [UNRECOGNIZED DRUG - REMARK] PO SCH (20:34)
[2017-12-03] MEDS: SIMVASTATIN 20 MG TAB PO SCH (20:34)
[2017-12-03] MEDS: STRIBILD PO SCH (20:34)
[2017-12-03] MEDS: ZOLPIDEM TARTRATE 5 MG TAB PO PRN (22:14)
[2017-12-04] VITALS (8 sets, daily range): BP systolic 94–121; BP diastolic 52–69
[2017-12-04] MEDS: ALBUTEROL SULF 0.083% NEB SOLN 3 ML NEB NEB SCH ×5 (07:00→23:00)
[2017-12-04] MEDS: IPRATROPIUM BROMIDE 0.02% 2.5 ML NEB NEB SCH ×5 (07:00→23:00)
[2017-12-04] MEDS: PIPER-TAZ 3.375 GM 50 ML IV SCH (07:11)
[2017-12-04] MEDS: METHYLPREDNISOLONE SOD SUCC 40 MG/ML VIAL IV SCH (07:11)
[2017-12-04] MEDS: POTASSIUM CHLORIDE 20MEQ/15ML UDC NG SCH (09:00)
[2017-12-04] MEDS: TRIMETHOPRIM/SULFAMETHOXAZOLE 160 MG in DEXTROSE 5% 250ML 250 ML IV SCH (09:30)
[2017-12-04] MEDS: PANTOPRAZOLE 40 MG 10ML VIAL IV SCH ×2 (09:45→16:59)
[2017-12-04] MEDS: HEPARIN SOD (PORCINE) 5,000 UNIT/ML VIAL SC SCH ×2 (09:45→21:21)
[2017-12-04] MEDS: TIZANIDINE HCL 4 MG TAB PO SCH ×2 (09:45→16:59)
[2017-12-04] MEDS: CELECOXIB 100 MG CAP PO SCH (09:45)
[2017-12-04] MEDS: TOPIRAMATE 25 MG TAB PO SCH ×3 (09:45→20:10)
[2017-12-04] MEDS: FLUOXETINE HCL 20 MG CAP PO SCH (09:45)
[2017-12-04] MEDS: OSELTAMIVIR PHOSPHATE 75 MG CAP PO SCH ×2 (09:45→16:59)
[2017-12-04] MEDS: AZITHROMYCIN 500MG/NS 250 ML 250 ML IV SCH (10:00)
[2017-12-04 10:25] LABS: BASOPHILS % 0.2 % (0.0-1.0); HEMOGLOBIN 10.3 g/dL (12.0-16.0); LYMPHOCYTES % 9.8 % (18.0-39.1); MEAN CORPUSCULAR HEMOGLOBIN 26.3 pg (28-32); MEAN CORPUSCULAR HGB CONC 32.2 g/dL (31-35); MEAN CORPUSCULAR VOLUME 81.6 fL (81-99); MONOCYTES # (AUTO) 0.4 (0.2-0.8); MONOCYTES % 4.2 % (4.4-11.3); NEUTROPHILS # (AUTO) 8.1 (2.1-6.9); NEUTROPHILS % 81.9 % (38.7-80.0); PLATELET COUNT 417 x10e3/uL (140-360); RED BLOOD COUNT 3.92 x10e6/uL (3.6-5.1); RED CELL DISTRIBUTION WIDTH 15.8 % (11.7-14.4)
[2017-12-04 10:35] LABS: ANION GAP 13.2 mmol/L (8-16); BLOOD UREA NITROGEN 14 mg/dL (7-26); BUN/CREATININE RATIO 18 (6-25); CALCIUM 9.1 mg/dL (8.4-10.2); CARBON DIOXIDE 23 mmol/L (22-29); CHLORIDE 100 mmol/L (98-107); CREATININE, SERUM 0.77 mg/dL (0.57-1.11); EST GLOMERULAR FILTRATION RATE > 60 ML/MIN (60-); GLUCOSE 185 mg/dL (74-118); POTASSIUM 4.2 mmol/L (3.5-5.1); SODIUM 132 mmol/L (136-145)
[2017-12-04] MEDS: CHOLESTYRAMINE 4 GM PACKET PO PRN ×2 (12:00→18:54)
[2017-12-04] MEDS: LEVOFLOXACIN 750MG/D5W 150ML 150 ML IV SCH (12:00)
--- NOTE | 2017-12-04 12:45 | Progress Note ---
DATE: Ms. Alarcon is doing better. She is off the ventilator and out of ICU in [facility]. The patient is saying she is having diarrhea, but she always has diarrhea, but she thinks it may be a little bit worse. The patient has been seen in [facility] on antiretroviral medication Triumeq, which she has at bedside. Has no complaints at the present time. REVIEW OF SYSTEMS: Otherwise, she is having diarrhea, some weakness, some shortness of breath and cough, but she is doing better. PHYSICAL EXAMINATION GENERAL: She is currently alert and oriented. Does not seem to be in acute distress. VITAL SIGNS: Temperature 98.7. There is no fever. I reviewed all her temperature curve and still no fever since admission. HEENT: Normocephalic. NECK: Supple. No JVD. No lymphadenopathy. No thyromegaly. CHEST: A few crackles bilaterally. COR: S1 and S2. No S3 or S4, no murmur. ABDOMEN: Soft. Bowel sounds present. No tenderness. No hepatosplenomegaly. EXTREMITIES: No edema. SKIN: No rash. LABORATORY DATA: White count is 9.85, hemoglobin 10.3, hematocrit 32. Sodium 132, potassium 4.2, creatinine 0.77, glucose 185. All of her cultures are still pending. There is no new data. IMPRESSION: Pneumonia, community acquired in a patient who has human immunodeficiency virus. Seems to be doing well. Concern if there is a component of fluid overload. Suggest to consult cardiology and obtain echocardiogram. She seems to be getting better. She is on azithromycin, Tamiflu, Bactrim, Zosyn. She is on prednisone. Her CD4 has been elevated, so I am not so sure if she has PCP at the present point, maybe she just has pneumonia. I am going to stop the steroid. Continue azithromycin and Zosyn to finish 8 days. Continue with the Bactrim for 3 weeks. Will change to oral. Because of her diarrhea, I am going to stop the Zosyn and the azithromycin and just give her Levaquin. Will reassess in the morning. Job#: [id number]
[2017-12-04 13:10] LABS: LYMPHOCYTES % (MANUAL) 10 % (19-48); MONOCYTES % (MANUAL) 6 % (3.4-9.0); NEUTROPHILS % (MANUAL) 84 % (40-74)
[2017-12-04 13:11] LABS: ANISOCYTOSIS SLIGHT; HYPOCHROMASIA SLIGHT; PLATELET ESTIMATE ADEQUATE; PLATELET MORPHOLOGY COMMENT NORMAL; RBC MORPHOLOGY COMMENT NORMAL
[2017-12-04] MEDS: SIMVASTATIN 20 MG TAB PO SCH (20:10)
[2017-12-04] MEDS: [UNRECOGNIZED DRUG - REMARK] PO SCH (20:10)
[2017-12-04] MEDS: STRIBILD PO SCH (20:10)
[2017-12-04] MEDS: SODIUM CHLORIDE 0.9% 1000ML 1,000 ML IV SCH (20:38)
[2017-12-04] MEDS: ZOLPIDEM TARTRATE 5 MG TAB PO PRN (21:28)
[2017-12-04] MEDS: TRAMADOL HCL 50 MG TAB PO PRN (23:18)
[2017-12-05 00:10] VITALS: BP 116/67
[2017-12-05 04:22] VITALS: BP 115/69
[2017-12-05 06:28] LABS: BASOPHILS % 0.4 % (0.0-1.0); HEMATOCRIT 31.2 % (34.2-44.1); LYMPHOCYTES # (AUTO) 1.4 (1.0-3.2); LYMPHOCYTES % 15.3 % (18.0-39.1); MEAN CORPUSCULAR HEMOGLOBIN 26.3 pg (28-32); MEAN CORPUSCULAR HGB CONC 32.1 g/dL (31-35); MEAN CORPUSCULAR VOLUME 82.1 fL (81-99); MONOCYTES # (AUTO) 0.9 (0.2-0.8); MONOCYTES % 9.5 % (4.4-11.3); NEUTROPHILS # (AUTO) 6.5 (2.1-6.9); NEUTROPHILS % 69.5 % (38.7-80.0); PLATELET COUNT 340 x10e3/uL (140-360); RED CELL DISTRIBUTION WIDTH 16.3 % (11.7-14.4)
[2017-12-05 06:53] LABS: BLOOD UREA NITROGEN 15 mg/dL (7-26); BUN/CREATININE RATIO 24 (6-25); CALCIUM 8.4 mg/dL (8.4-10.2); CARBON DIOXIDE 23 mmol/L (22-29); CHLORIDE 107 mmol/L (98-107); CREATININE, SERUM 0.63 mg/dL (0.57-1.11); EST GLOMERULAR FILTRATION RATE > 60 ML/MIN (60-); GLUCOSE 148 mg/dL (74-118); SODIUM 137 mmol/L (136-145)
[2017-12-05] MEDS: ALBUTEROL SULF 0.083% NEB SOLN 3 ML NEB NEB SCH ×3 (07:30→20:10)
[2017-12-05] MEDS: IPRATROPIUM BROMIDE 0.02% 2.5 ML NEB NEB SCH ×3 (07:30→20:10)
[2017-12-05 08:00] VITALS: BP 114/65
[2017-12-05] MEDS: POTASSIUM CHLORIDE 20MEQ/15ML UDC NG SCH (09:00)
[2017-12-05] MEDS: PANTOPRAZOLE 40 MG 10ML VIAL IV SCH ×2 (09:13→17:00)
[2017-12-05] MEDS: TIZANIDINE HCL 4 MG TAB PO SCH ×2 (09:13→17:00)
[2017-12-05] MEDS: CELECOXIB 100 MG CAP PO SCH (09:13)
[2017-12-05] MEDS: FLUOXETINE HCL 20 MG CAP PO SCH (09:13)
[2017-12-05] MEDS: OSELTAMIVIR PHOSPHATE 75 MG CAP PO SCH (09:13)
[2017-12-05] MEDS: TOPIRAMATE 25 MG TAB PO SCH ×3 (09:13→21:27)
[2017-12-05] MEDS: HEPARIN SOD (PORCINE) 5,000 UNIT/ML VIAL SC SCH ×2 (09:15→21:28)
[2017-12-05] MEDS: CHOLESTYRAMINE 4 GM PACKET PO PRN (10:06)
[2017-12-05] MEDS: LEVOFLOXACIN 750MG/D5W 150ML 150 ML IV SCH (11:43)
[2017-12-05 12:00] VITALS: BP 106/69
[2017-12-05] MEDS ORDERED: ACYCLOVIR 200 MG/5 ML SUSP GT SCH (14:00)
[2017-12-05] MEDS: SODIUM CHLORIDE 0.9% 1000ML 1,000 ML IV SCH (15:10)
[2017-12-05 16:00] VITALS: BP 116/67
[2017-12-05 19:00] VITALS: BP 106/66
[2017-12-05] MEDS: STRIBILD PO SCH (21:27)
[2017-12-05] MEDS: [UNRECOGNIZED DRUG - REMARK] PO SCH (21:27)
[2017-12-05] MEDS: SIMVASTATIN 20 MG TAB PO SCH (21:27)
[2017-12-05] MEDS: TRAMADOL HCL 50 MG TAB PO PRN (23:44)
[2017-12-06] VITALS (11 sets, daily range): BP systolic 95–119; BP diastolic 57–72
[2017-12-06] MEDS: ALBUTEROL SULF 0.083% NEB SOLN 3 ML NEB NEB SCH ×4 (07:55→23:00)
[2017-12-06] MEDS: POTASSIUM CHLORIDE 20MEQ/15ML UDC NG SCH ×2 (09:00→09:16)
[2017-12-06] MEDS: FLUOXETINE HCL 20 MG CAP PO SCH (09:16)
[2017-12-06] MEDS: CELECOXIB 100 MG CAP PO SCH (09:16)
[2017-12-06] MEDS: TIZANIDINE HCL 4 MG TAB PO SCH ×2 (09:16→16:26)
[2017-12-06] MEDS: TOPIRAMATE 25 MG TAB PO SCH ×3 (09:16→21:43)
[2017-12-06] MEDS: HEPARIN SOD (PORCINE) 5,000 UNIT/ML VIAL SC SCH ×2 (09:19→21:45)
[2017-12-06] MEDS: PANTOPRAZOLE 40 MG 10ML VIAL IV SCH ×2 (09:19→16:25)
[2017-12-06] MEDS: CHOLESTYRAMINE 4 GM PACKET PO PRN (09:33)
[2017-12-06] MEDS: TRIMETHOPRIM/SULFAMETHOXAZOLE 160-800 MG TAB PO SCH ×2 (11:25→21:43)
[2017-12-06] MEDS: LEVOFLOXACIN 750MG/D5W 150ML 150 ML IV SCH (11:25)
[2017-12-06] MEDS: SODIUM CHLORIDE 0.9% 1000ML 1,000 ML IV SCH (11:25)
[2017-12-06] MEDS: ACYCLOVIR 200 MG/5 ML SUSP GT SCH ×2 (11:34→18:10)
--- NOTE | 2017-12-06 14:20 | Diagnostic Imaging Report ---
PROCEDURE: Frontal and lateral views of the chest. COMPARISON: [facility], DX, CHEST SINGLE (PORTABLE), 12/03/2017, 4:53. INDICATIONS: PNEUMONIA FINDINGS: Lines/tubes: Interval removal of the previously visualized endotracheal tube and enteric tube. Unchanged left-sided PICC line. Lungs: Lungs are mildly hypoinflated. No interval change in bilateral diffuse interstitial opacities, left greater than right, or left retrocardiac opacity. Pleura: Left-sided pleural effusion. Heart and mediastinum: Cardiac silhouette is obscured. Central pulmonary venous congestion. Bones: No acute bony abnormality. IMPRESSION: 1. bilateral diffuse interstitial opacities, which may represent interstitial edema/fluid overload versus atypical infection. 2. Left retrocardiac opacity may represent alveolar edema, compressive atelectasis or consolidation/pneumonia. 3. Left-sided pleural effusion. Artie Ibrahim M.D. Dictated by: Artie Ibrahim M.D. on 12/06/2017 at 14:28 Electronically approved by: Artie Ibrahim M.D. on 12/06/2017 at 14:28
--- NOTE | 2017-12-06 16:50 | Consultation ---
DATE OF CONSULTATION: December 06, 2017 REHAB CONSULTATION REFERRING PHYSICIAN: Dr. Brandon Bowles. I would like to thank Dr. Bowles for asking me to see Mrs. Alarcon in consultation. REASON FOR CONSULTATION 1. Debilitation. 2. HIV positive. 3. Patient with sepsis. 4. Diabetes. HISTORY: A 57-year-old female who has a history of HIV came into the emergency room because of fevers, chills, and easily short of breath. Was admitted on November 26, 2017. Underwent workup, was seen by Dr. Shields, found to have sepsis. Patient states that she is feeling better but nowhere near her baseline. She easily desaturates and gets sick while trying to get up. I am being asked to evaluate for rehab needs. PAST MEDICAL HISTORY: Diabetes type 2. HIV, CD4 count of 1200. SURGERIES: Hysterectomy, back surgery. HABITS: Nonsmoker, nondrinker. ALLERGIES: NO KNOWN DRUG ALLERGIES. SOCIAL HISTORY: Lives in a trailer. It takes 4 steps to get up. She did not use a walker or a cane, but she was a limited ambulator. She could move around the trailer, walk to her car, but after that really didn't do a whole lot more activity. FAMILY HISTORY: Heart disease and diabetes runs in the family. CONSTITUTIONAL REVIEW OF SYSTEMS: Eleven-point review of systems essentially negative except for the fact that she is just normally very weak and very tired overall and easily fatigues. PHYSICAL EXAMINATION EYES: Gaze is conjugate. ORAL: Tongue is midline. No dysarthria. NECK: Supple. HEART: Regular. LUNGS: Diminished breath sounds. EXTREMITIES: Functional range of motion of arms as well as the legs. SENSORY-FRIEDMAN: Denies any numbness or tingling, hands, feet or face. MANUAL MUSCLE TESTING: She is actually pretty strong, 4/5 strength in the upper extremities bilaterally, lower extremities 4+/5 bilaterally. No focal deficits. She is saying she gets easily short of breath whenever she changes position. Clonus negative bilaterally. No increased tone. Passive range of motion arms and legs . IMPRESSION 1. Debilitated state. 2. Patient with sepsis. 3. Human immunodeficiency virus positive. 4. Diabetes. PLAN: Her problem is her O2 sat. She desaturates too easily, and once that happens she cannot really do much activity. This is a function of her pulmonary status. Therapy will continue to work with her and try to improve. As her pulmonary status improves, that should improve. Will follow along . Thank you once again for allowing me to participate in the care of this pleasant but unfortunate patient. Job#: [id number] EV
[2017-12-06] MEDS: IPRATROPIUM BROMIDE 0.02% 2.5 ML NEB NEB SCH ×2 (21:30→23:00)
[2017-12-06] MEDS: [UNRECOGNIZED DRUG - REMARK] PO SCH (21:43)
[2017-12-06] MEDS: STRIBILD PO SCH (21:43)
[2017-12-06] MEDS: SIMVASTATIN 20 MG TAB PO SCH (21:43)
[2017-12-06] MEDS: ZOLPIDEM TARTRATE 5 MG TAB PO PRN (21:44)
[2017-12-06] MEDS: TRAMADOL HCL 50 MG TAB PO PRN (21:44)
[2017-12-07] VITALS (7 sets, daily range): BP systolic 98–123; BP diastolic 53–72
[2017-12-07] MEDS: ALBUTEROL SULF 0.083% NEB SOLN 3 ML NEB NEB SCH ×2 (02:00→07:00)
[2017-12-07] MEDS: IPRATROPIUM BROMIDE 0.02% 2.5 ML NEB NEB SCH ×6 (02:02→23:18)
[2017-12-07] MEDS: ACYCLOVIR 200 MG/5 ML SUSP GT SCH ×3 (02:04→17:20)
[2017-12-07] MEDS: PANTOPRAZOLE 40 MG 10ML VIAL IV SCH ×2 (08:26→16:04)
[2017-12-07] MEDS: TRIMETHOPRIM/SULFAMETHOXAZOLE 160-800 MG TAB PO SCH ×2 (08:26→21:55)
[2017-12-07] MEDS: POTASSIUM CHLORIDE 20 MEQ TAB CR PO SCH (08:26)
[2017-12-07] MEDS: CELECOXIB 100 MG CAP PO SCH (08:26)
[2017-12-07] MEDS: TIZANIDINE HCL 4 MG TAB PO SCH ×2 (08:27→16:04)
[2017-12-07] MEDS: CHOLESTYRAMINE 4 GM PACKET PO PRN (08:27)
[2017-12-07] MEDS: TOPIRAMATE 25 MG TAB PO SCH ×3 (08:27→21:55)
[2017-12-07] MEDS: FLUOXETINE HCL 20 MG CAP PO SCH (08:27)
[2017-12-07] MEDS: SODIUM CHLORIDE 0.9% 1000ML 1,000 ML IV SCH (08:28)
[2017-12-07] MEDS: HEPARIN SOD (PORCINE) 5,000 UNIT/ML VIAL SC SCH ×2 (09:57→21:56)
[2017-12-07] MEDS: LEVOFLOXACIN 750MG/D5W 150ML 150 ML IV SCH (12:08)
--- NOTE | 2017-12-07 14:43 | Cardiology Report ---
DATE OF STUDY: ECHOCARDIOGRAM ATTENDING PHYSICIAN: Dr. Lazaro Hallman. M-MODE: Normal chamber sizes. Left ventricular hypertrophy. Normal contractility. Normal mitral and aortic valves. No pericardial effusion. SECTOR SCAN: Normal chamber sizes. Left ventricular hypertrophy. Normal contractility. Normal mitral, aortic and tricuspid valves. No pericardial effusion. CARDIAC DOPPLER STUDY WITH COLOR: Diastolic dysfunction. Trace mitral regurgitation. Trace tricuspid regurgitation. CONCLUSIONS: 1. Left ventricular hypertrophy with ejection fraction of approximately 60%. 2. Evidence of diastolic dysfunction. 3. Trace tricuspid and mitral regurgitation. Job#: [id number] EV cc:LAZARO HALLMAN MD
[2017-12-07] MEDS ORDERED: METHYLPREDNISOLONE SOD SUCC 40 MG/ML VIAL IV SCH (16:00)
[2017-12-07] MEDS: PREDNISONE 20 MG TAB PO SCH (16:04)
[2017-12-07] MEDS: FLUCONAZOLE 200 MG/100 ML 100 ML IV SCH (16:04)
[2017-12-07] MEDS: SIMVASTATIN 20 MG TAB PO SCH (21:55)
[2017-12-07] MEDS: STRIBILD PO SCH (21:55)
[2017-12-07] MEDS: TRAMADOL HCL 50 MG TAB PO PRN (21:55)
[2017-12-07] MEDS: [UNRECOGNIZED DRUG - REMARK] PO SCH (21:55)
[2017-12-07] MEDS: ZOLPIDEM TARTRATE 5 MG TAB PO PRN (21:55)
[2017-12-08] VITALS (7 sets, daily range): BP systolic 93–120; BP diastolic 57–75
[2017-12-08] MEDS: ACYCLOVIR 200 MG/5 ML SUSP GT SCH ×3 (02:00→16:11)
[2017-12-08] MEDS: IPRATROPIUM BROMIDE 0.02% 2.5 ML NEB NEB SCH ×6 (03:00→23:00)
[2017-12-08] MEDS: CELECOXIB 100 MG CAP PO SCH (08:52)
[2017-12-08] MEDS: PREDNISONE 20 MG TAB PO SCH ×2 (08:52→16:10)
[2017-12-08] MEDS: TRIMETHOPRIM/SULFAMETHOXAZOLE 160-800 MG TAB PO SCH ×2 (08:52→20:45)
[2017-12-08] MEDS: FLUOXETINE HCL 20 MG CAP PO SCH (08:52)
[2017-12-08] MEDS: TIZANIDINE HCL 4 MG TAB PO SCH ×2 (08:52→16:10)
[2017-12-08] MEDS: TOPIRAMATE 25 MG TAB PO SCH ×3 (08:52→20:45)
[2017-12-08] MEDS: SODIUM CHLORIDE 0.9% 1000ML 1,000 ML IV SCH (08:52)
[2017-12-08] MEDS: PANTOPRAZOLE 40 MG 10ML VIAL IV SCH ×2 (08:52→16:10)
[2017-12-08] MEDS: POTASSIUM CHLORIDE 20 MEQ TAB CR PO SCH (08:53)
[2017-12-08] MEDS: CHOLESTYRAMINE 4 GM PACKET PO PRN (09:00)
[2017-12-08] MEDS: LEVOFLOXACIN 750MG/D5W 150ML 150 ML IV SCH (11:31)
[2017-12-08] MEDS: FLUCONAZOLE 200 MG/100 ML 100 ML IV SCH (16:10)
[2017-12-08] MEDS: SIMVASTATIN 20 MG TAB PO SCH (20:45)
[2017-12-08] MEDS: STRIBILD PO SCH (20:50)
[2017-12-08] MEDS: [UNRECOGNIZED DRUG - REMARK] PO SCH (20:50)
[2017-12-08] MEDS ORDERED: FUROSEMIDE INJ 10 MG/ML 4 ML VIAL IV SCH (21:00)
[2017-12-08] MEDS: ACETAMINOPHEN 325 MG TAB PO PRN (21:30)
[2017-12-09] VITALS (32 sets, daily range): BP systolic 68–107; BP diastolic 41–75
[2017-12-09] MEDS: ACYCLOVIR 200 MG/5 ML SUSP GT SCH ×4 (02:00→21:43)
[2017-12-09] MEDS: IPRATROPIUM BROMIDE 0.02% 2.5 ML NEB NEB SCH ×6 (03:00→22:45)
[2017-12-09] MEDS: PANTOPRAZOLE 40 MG 10ML VIAL IV SCH ×2 (04:07→17:41)
[2017-12-09] MEDS: TIZANIDINE HCL 4 MG TAB PO SCH ×2 (09:00→20:00)
[2017-12-09] MEDS: PREDNISONE 20 MG TAB PO SCH ×2 (09:00→17:00)
[2017-12-09] MEDS: POTASSIUM CHLORIDE 20 MEQ TAB CR PO SCH (09:00)
[2017-12-09] MEDS: TOPIRAMATE 25 MG TAB PO SCH ×3 (09:00→21:43)
[2017-12-09] MEDS: CELECOXIB 100 MG CAP PO SCH (09:00)
[2017-12-09] MEDS: TRIMETHOPRIM/SULFAMETHOXAZOLE 160-800 MG TAB PO SCH ×2 (09:00→21:00)
[2017-12-09] MEDS: FLUOXETINE HCL 20 MG CAP PO SCH (09:00)
[2017-12-09 09:07] LABS: ABG HCO3 18 mmol/L (23-28); ABG PCO2 35 mmHg (41-51); ABG PH 7.33 (7.31-7.41); ABG PO2 57 mmHg (80-105)
[2017-12-09] MEDS ORDERED: NALOXONE HCL INJ 0.4 MG/ML AMP IV PRN (10:30)
[2017-12-09] MEDS: MIDAZOLAM HCL 2 MG/2 ML VIAL IV PRN ×2 (10:39→17:40)
[2017-12-09] MEDS ORDERED: PROPOFOL IV EMULSION 10MG/ML 100 ML ONE (10:55)
--- NOTE | 2017-12-09 11:20 | Diagnostic Imaging Report ---
PROCEDURE: A single AP view of the chest. COMPARISON: 11/26/17 INDICATIONS: POST INTUBATION FINDINGS: Lines/tubes: Status post intubation. The tip of the endotracheal tube is 3.5 cm above garcia. Lungs: Low lung volumes. Diffuse air space opacities. Pleura: There is no pneumothorax. Small bilateral pleural effusions. Heart and mediastinum: The cardiac silhouette is enlarged, Bones: No acute bony abnormality. IMPRESSION: Diffuse air space opacities, representing edema and/or infiltrates. Endotracheal tube in proper position. Dictated by: Jamey Lo M.D. on 12/09/2017 at 11:29 Electronically approved by: Jamey Lo M.D. on 12/09/2017 at 11:29
[2017-12-09] MEDS: HYDROMORPHONE 0.2MG/ML-SOD CHL 30ML PCA SYRINGE IV PRN (11:28)
[2017-12-09] MEDS ORDERED: SODIUM CHLORIDE 0.9% 250ML 250 ML ONE (11:38)
[2017-12-09 12:09] LABS: ABG HCO3 19 mmol/L (23-28); ABG PCO2 42 mmHg (41-51); ABG PH 7.26 (7.31-7.41); ABG PO2 94 mmHg (80-105)
[2017-12-09] MEDS: PROPOFOL IV EMULSION 10MG/ML 100 ML IV SCH ×2 (12:44→15:40)
[2017-12-09] MEDS: FUROSEMIDE INJ 10 MG/ML 4 ML VIAL IV SCH (12:45)
[2017-12-09] MEDS: LEVOFLOXACIN 750MG/D5W 150ML 150 ML IV SCH (12:46)
[2017-12-09] MEDS: FLUCONAZOLE 200 MG/100 ML 100 ML IV SCH (17:33)
[2017-12-09] MEDS: METHYLPREDNISOLONE SOD SUCC 40 MG/ML VIAL IV SCH (17:44)
--- NOTE | 2017-12-09 17:47 | Diagnostic Imaging Report ---
PROCEDURE:X-RAY ABDOMEN - KUB COMPARISON:None. INDICATIONS:OGT TUBE CONCLUSION: Dedicated x-ray to confirm OG tube placement. OG tube is visualized below the left hemidiaphragm with tip extending to the right abdomen, terminating at the expected location of gastric antrum. Dictated by: Jamey Lo M.D. on 12/09/2017 at 17:56 Electronically approved by: Jaemy Lo M.D. on 12/09/2017 at 17:56
--- NOTE | 2017-12-09 18:01 | Diagnostic Imaging Report ---
PROCEDURE: CT CHEST WITHOUT CONTRAST CT scan of the chest WITHOUT intravenous contrast, using high-resolution protocol. TECHNIQUE: The chest was scanned utilizing a multidetector helical scanner from the apex to the level of the adrenal glands. Coronal and sagittal multiplanar reformations were obtained. COMPARISON: CT dated 11/26/17 INDICATIONS: SOB, PNEUMONIA, HRCT FINDINGS: Lines/tubes: Left PICC in place with tip terminating at cavoatrial junction. Lungs and Airways: Diffuse bilateral lung ground-glass opacities with interlobular septal thickening, increased from prior exam. There is also mild bronchiectasis, especially in the lower lobes. The lung opacities did not significantly changed on prone or expiration images. Pleura: The pleural spaces are clear. Heart and mediastinum: The thyroid gland is normal. No significant mediastinal, hilar or axillary lymphadenopathy is seen. The heart and pericardium are within normal limits. Main pulmonary artery measures 4 cm in diameter, suggestive of pulmonary hypertension. Soft tissues: Normal. Abdomen: Unremarkable Bones: The visualized bony thorax is within normal limits. IMPRESSION: Worsening of the bilateral ground glass air space opacities in comparison with CT dated 11/26/17, could represent worsening atypical infectious process and/or superimposed pulmonary edema. Distended main pulmonary artery, suggestive of pulmonary hypertension. Dictated by: Jamey Lo M.D. on 12/09/2017 at 18:10 Electronically approved by: Jamey Lo M.D. on 12/09/2017 at 18:10
[2017-12-09 18:52] LABS: ABG HCO3 23 mmol/L (23-28); ABG PCO2 42 mmHg (41-51); ABG PH 7.34 (7.31-7.41); ABG PO2 84 mmHg (80-105)
[2017-12-09] MEDS: STRIBILD PO SCH (21:43)
[2017-12-09] MEDS: [UNRECOGNIZED DRUG - REMARK] PO SCH (21:43)
[2017-12-09] MEDS: SIMVASTATIN 20 MG TAB PO SCH (21:43)
[2017-12-09] MEDS: TRIMETHOPRIM/SULFAMETHOXAZOLE 160 MG in DEXTROSE 5% 250ML 250 ML IV SCH (21:49)
[2017-12-10] VITALS (78 sets, daily range): BP systolic 77–114; BP diastolic 43–90
[2017-12-10] MEDS: IPRATROPIUM BROMIDE 0.02% 2.5 ML NEB NEB SCH ×6 (03:21→23:25)
[2017-12-10] MEDS: METHYLPREDNISOLONE SOD SUCC 40 MG/ML VIAL IV SCH ×2 (05:51→17:32)
[2017-12-10] MEDS: TRIMETHOPRIM/SULFAMETHOXAZOLE 160 MG in DEXTROSE 5% 250ML 250 ML IV SCH ×3 (05:51→21:59)
[2017-12-10 06:11] LABS: BASOPHILS % 0.2 % (0.0-1.0); HEMATOCRIT 37.8 % (34.2-44.1); HEMOGLOBIN 12.2 g/dL (12.0-16.0); LYMPHOCYTES # (AUTO) 1.2 (1.0-3.2); LYMPHOCYTES % 6.9 % (18.0-39.1); MEAN CORPUSCULAR HEMOGLOBIN 26.5 pg (28-32); MEAN CORPUSCULAR HGB CONC 32.3 g/dL (31-35); MONOCYTES # (AUTO) 1.3 (0.2-0.8); NEUTROPHILS # (AUTO) 15.1 (2.1-6.9); NEUTROPHILS % 84.4 % (38.7-80.0); PLATELET COUNT 190 x10e3/uL (140-360); RED BLOOD COUNT 4.61 x10e6/uL (3.6-5.1); RED CELL DISTRIBUTION WIDTH 17.5 % (11.7-14.4)
[2017-12-10 06:55] LABS: ALANINE AMINOTRANSFERASE 26 IU/L (0-55); ALBUMIN 2.5 g/dL (3.5-5.0); ALBUMIN/GLOBULIN RATIO 0.5 (0.8-2.0); ALKALINE PHOSPHATASE 99 IU/L (40-150); ANION GAP 14.6 mmol/L (8-16); BLOOD UREA NITROGEN 20 mg/dL (7-26); BUN/CREATININE RATIO 22 (6-25); CALCIUM 9.4 mg/dL (8.4-10.2); CARBON DIOXIDE 22 mmol/L (22-29); CHLORIDE 100 mmol/L (98-107); CREATININE, SERUM 0.89 mg/dL (0.57-1.11); EST GLOMERULAR FILTRATION RATE > 60 ML/MIN (60-); GLUCOSE 143 mg/dL (74-118); POTASSIUM 4.6 mmol/L (3.5-5.1); SODIUM 132 mmol/L (136-145)
--- NOTE | 2017-12-10 07:36 | Diagnostic Imaging Report ---
PROCEDURE: A single AP view of the chest. COMPARISON: Portable chest 12/09/2017. INDICATIONS: INTUBATED FINDINGS: Lines/tubes: Endotracheal catheter is present with the tip projecting over the expected region of the trachea, positioned 2 cm from the garcia. Left peripherally inserted central venous catheter with tip projecting over the expected region of the superior vena cava. Enteric feeding catheter with tip projecting over the expected region of the gastric body. Lungs: Bilateral multifocal airspace opacities. No parenchymal mass. Pleura: There is no pleural effusion or pneumothorax. Heart and mediastinum: The heart and the mediastinum are unremarkable. Bones: No acute bony abnormality. Degenerative changes of the thoracic spine. IMPRESSION: Bilateral multifocal airspace opacifications may represent a developing pneumonia or pulmonary edema. Dictated by: Brandon Orozco M.D. on 12/10/2017 at 7:45 Electronically approved by: Brandon Orozco M.D. on 12/10/2017 at 7:45
[2017-12-10] MEDS: TOPIRAMATE 25 MG TAB PO SCH ×3 (09:00→21:59)
[2017-12-10] MEDS: FLUOXETINE HCL 20 MG CAP PO SCH (09:00)
[2017-12-10] MEDS: TIZANIDINE HCL 4 MG TAB PO SCH ×2 (09:00→16:59)
[2017-12-10] MEDS: CELECOXIB 100 MG CAP PO SCH (09:00)
[2017-12-10] MEDS: POTASSIUM CHLORIDE 20 MEQ TAB CR PO SCH (09:00)
[2017-12-10] MEDS: FUROSEMIDE INJ 10 MG/ML 4 ML VIAL IV SCH (09:28)
[2017-12-10] MEDS: PANTOPRAZOLE 40 MG 10ML VIAL IV SCH ×2 (09:28→16:59)
[2017-12-10] MEDS: ACYCLOVIR 200 MG/5 ML SUSP GT SCH ×2 (09:30→16:59)
[2017-12-10] MEDS: LEVOFLOXACIN 750MG/D5W 150ML 150 ML IV SCH (11:15)
[2017-12-10] MEDS ORDERED: SODIUM CHLORIDE 0.9% 250ML 250 ML ONE (12:25)
[2017-12-10] MEDS: FLUCONAZOLE 200 MG/100 ML 100 ML IV SCH (16:00)
[2017-12-10] MEDS ORDERED: WATER STERILE 10 ML VIAL ONE (16:59)
[2017-12-10] MEDS ORDERED: SUCCINYLCHOLINE CHLORIDE 20 MG/ML 10ML VIAL ONE (16:59)
[2017-12-10] MEDS ORDERED: VECURONIUM BROMIDE FOR INJ 20 MG VIAL ONE (16:59)
[2017-12-10] MEDS ORDERED: MIDAZOLAM HCL 2 MG/2 ML VIAL ONE (16:59)
[2017-12-10] MEDS ORDERED: ETOMIDATE 40 MG/ 20ML VIAL IV ONE (16:59)
[2017-12-10] MEDS: ONDANSETRON HCL INJ 2 MG/ML VIAL IV PRN (17:33)
[2017-12-10] MEDS: PROPOFOL IV EMULSION 10MG/ML 100 ML IV SCH (20:50)
[2017-12-10] MEDS: [UNRECOGNIZED DRUG - REMARK] PO SCH (21:59)
[2017-12-10] MEDS: SIMVASTATIN 20 MG TAB PO SCH (21:59)
[2017-12-10] MEDS: STRIBILD PO SCH (21:59)
[2017-12-11] VITALS (88 sets, daily range): BP systolic 78–120; BP diastolic 33–107
[2017-12-11] MEDS: ACYCLOVIR 200 MG/5 ML SUSP GT SCH ×3 (02:05→18:00)
[2017-12-11] MEDS: IPRATROPIUM BROMIDE 0.02% 2.5 ML NEB NEB SCH ×6 (03:15→23:26)
[2017-12-11] MEDS: METHYLPREDNISOLONE SOD SUCC 40 MG/ML VIAL IV SCH ×2 (05:29→18:00)
[2017-12-11] MEDS: TRIMETHOPRIM/SULFAMETHOXAZOLE 160 MG in DEXTROSE 5% 250ML 250 ML IV SCH ×3 (05:29→22:57)
[2017-12-11] MEDS: PROPOFOL IV EMULSION 10MG/ML 100 ML IV SCH (05:30)
[2017-12-11 05:36] LABS: BASOPHILS % 0.2 % (0.0-1.0); EOSINOPHILS % 0.1 % (0.0-6.0); HEMATOCRIT 36.7 % (34.2-44.1); HEMOGLOBIN 11.9 g/dL (12.0-16.0); LYMPHOCYTES # (AUTO) 0.9 (1.0-3.2); LYMPHOCYTES % 5.4 % (18.0-39.1); MEAN CORPUSCULAR HEMOGLOBIN 26.4 pg (28-32); MEAN CORPUSCULAR HGB CONC 32.4 g/dL (31-35); MEAN CORPUSCULAR VOLUME 81.4 fL (81-99); MONOCYTES # (AUTO) 1.8 (0.2-0.8); MONOCYTES % 10.3 % (4.4-11.3); NEUTROPHILS # (AUTO) 14.3 (2.1-6.9); NEUTROPHILS % 82.7 % (38.7-80.0); PLATELET COUNT 200 x10e3/uL (140-360); RED BLOOD COUNT 4.51 x10e6/uL (3.6-5.1); RED CELL DISTRIBUTION WIDTH 17.6 % (11.7-14.4)
[2017-12-11 05:58] LABS: ANION GAP 12.4 mmol/L (8-16); BLOOD UREA NITROGEN 20 mg/dL (7-26); BUN/CREATININE RATIO 26 (6-25); CALCIUM 9.5 mg/dL (8.4-10.2); CARBON DIOXIDE 26 mmol/L (22-29); CHLORIDE 96 mmol/L (98-107); CREATININE, SERUM 0.78 mg/dL (0.57-1.11); EST GLOMERULAR FILTRATION RATE > 60 ML/MIN (60-); GLUCOSE 167 mg/dL (74-118); POTASSIUM 4.4 mmol/L (3.5-5.1); SODIUM 130 mmol/L (136-145)
[2017-12-11] MEDS: FLUOXETINE HCL 20 MG CAP PO SCH (09:00)
[2017-12-11] MEDS: TIZANIDINE HCL 4 MG TAB PO SCH ×2 (09:00→16:36)
[2017-12-11] MEDS: CELECOXIB 100 MG CAP PO SCH (09:00)
[2017-12-11] MEDS: POTASSIUM CHLORIDE 20 MEQ TAB CR PO SCH (09:00)
[2017-12-11] MEDS: TOPIRAMATE 25 MG TAB PO SCH ×3 (09:00→21:16)
[2017-12-11] MEDS: PANTOPRAZOLE 40 MG 10ML VIAL IV SCH ×2 (09:00→16:36)
[2017-12-11] MEDS: FUROSEMIDE INJ 10 MG/ML 4 ML VIAL IV SCH (09:00)
[2017-12-11 09:06] LABS: ABG HCO3 28 mmol/L (23-28); ABG PCO2 46 mmHg (41-51); ABG PH 7.39 (7.31-7.41); ABG PO2 50 mmHg (80-105)
[2017-12-11] MEDS ORDERED: POTASSIUM CHLORIDE 20MEQ/15ML UDC ONE (09:21)
[2017-12-11] MEDS: ONDANSETRON HCL INJ 2 MG/ML VIAL IV PRN ×2 (09:51→14:50)
--- NOTE | 2017-12-11 10:13 | Diagnostic Imaging Report ---
PROCEDURE: CHEST SINGLE (PORTABLE) COMPARISON: 12/10/2017. INDICATIONS: INTUBATED, BILATERAL PNEUMONIA FINDINGS: See conclusion CONCLUSION: 1. Endotracheal tube, enteric tube and left upper extremity PICC are unchanged in position. 2. Patchy bilateral lower lobe consolidations, left greater than right, unchanged. As before, differential diagnosis includes multifocal pneumonia or dependent pulmonary edema. Artifact from ventilator tubing projects over the left midlung. No new consolidations. 3. Stable cardiomediastinal contour with mild prominence of the central pulmonary vasculature. Dictated by: Julien Gordillo M.D. on 12/11/2017 at 10:22 Electronically approved by: Julien Gordillo M.D. on 12/11/2017 at 10:22
[2017-12-11] MEDS: LEVOFLOXACIN 750MG/D5W 150ML 150 ML IV SCH (11:15)
[2017-12-11] MEDS: FLUCONAZOLE 200 MG/100 ML 100 ML IV SCH (16:00)
[2017-12-11] MEDS: STRIBILD PO SCH (21:16)
[2017-12-11] MEDS: [UNRECOGNIZED DRUG - REMARK] PO SCH (21:16)
[2017-12-11] MEDS: SIMVASTATIN 20 MG TAB PO SCH (21:16)
[2017-12-12] VITALS (66 sets, daily range): BP systolic 53–137; BP diastolic 30–72
[2017-12-12] MEDS: PROPOFOL IV EMULSION 10MG/ML 100 ML IV SCH (01:00)
[2017-12-12] MEDS: ACYCLOVIR 200 MG/5 ML SUSP GT SCH ×3 (02:00→17:48)
[2017-12-12] MEDS: IPRATROPIUM BROMIDE 0.02% 2.5 ML NEB NEB SCH ×6 (03:20→23:45)
[2017-12-12] MEDS: TRIMETHOPRIM/SULFAMETHOXAZOLE 160 MG in DEXTROSE 5% 250ML 250 ML IV SCH ×3 (05:46→23:40)
[2017-12-12] MEDS: METHYLPREDNISOLONE SOD SUCC 40 MG/ML VIAL IV SCH ×2 (05:46→17:48)
[2017-12-12 06:02] LABS: BASOPHILS % 0.1 % (0.0-1.0); HEMATOCRIT 36.1 % (34.2-44.1); HEMOGLOBIN 11.9 g/dL (12.0-16.0); LYMPHOCYTES # (AUTO) 0.8 (1.0-3.2); LYMPHOCYTES % 4.5 % (18.0-39.1); MEAN CORPUSCULAR HEMOGLOBIN 26.9 pg (28-32); MEAN CORPUSCULAR VOLUME 81.5 fL (81-99); MONOCYTES # (AUTO) 1.7 (0.2-0.8); MONOCYTES % 10.3 % (4.4-11.3); NEUTROPHILS % 83.7 % (38.7-80.0); PLATELET COUNT 205 x10e3/uL (140-360); RED BLOOD COUNT 4.43 x10e6/uL (3.6-5.1); RED CELL DISTRIBUTION WIDTH 17.2 % (11.7-14.4)
[2017-12-12 06:21] LABS: ANION GAP 14.3 mmol/L (8-16); BLOOD UREA NITROGEN 27 mg/dL (7-26); BUN/CREATININE RATIO 33 (6-25); CALCIUM 9.2 mg/dL (8.4-10.2); CARBON DIOXIDE 27 mmol/L (22-29); CHLORIDE 94 mmol/L (98-107); CREATININE, SERUM 0.81 mg/dL (0.57-1.11); EST GLOMERULAR FILTRATION RATE > 60 ML/MIN (60-); GLUCOSE 190 mg/dL (74-118); POTASSIUM 4.3 mmol/L (3.5-5.1); SODIUM 131 mmol/L (136-145)
[2017-12-12] MEDS ORDERED: ONDANSETRON HCL INJ 2 MG/ML VIAL ONE (08:00)
[2017-12-12] MEDS: ONDANSETRON HCL INJ 2 MG/ML VIAL IV PRN ×2 (08:00→17:05)
[2017-12-12] MEDS ORDERED: POTASSIUM CHLORIDE 20MEQ/15ML UDC ONE (08:01)
[2017-12-12 08:18] LABS: HYPOCHROMASIA SLIGHT; LYMPHOCYTES % (MANUAL) 4 % (19-48); MONOCYTES % (MANUAL) 7 % (3.4-9.0); NEUTROPHILS % (MANUAL) 89 % (40-74)
[2017-12-12 08:19] LABS: ANISOCYTOSIS SLIGHT; PLATELET ESTIMATE ADEQUATE; PLATELET MORPHOLOGY COMMENT NORMAL; POIKILOCYTOSIS SLIGHT; RBC MORPHOLOGY COMMENT NORMAL
[2017-12-12] MEDS: FLUOXETINE HCL 20 MG CAP PO SCH (09:00)
[2017-12-12] MEDS: CELECOXIB 100 MG CAP PO SCH (09:00)
[2017-12-12] MEDS: TIZANIDINE HCL 4 MG TAB PO SCH ×2 (09:00→16:36)
[2017-12-12] MEDS: POTASSIUM CHLORIDE 20 MEQ TAB CR PO SCH (09:00)
[2017-12-12] MEDS: PANTOPRAZOLE 40 MG 10ML VIAL IV SCH ×2 (09:00→16:36)
[2017-12-12] MEDS: FUROSEMIDE INJ 10 MG/ML 4 ML VIAL IV SCH (09:00)
[2017-12-12] MEDS: TOPIRAMATE 25 MG TAB PO SCH ×3 (09:00→22:00)
[2017-12-12] MEDS: LEVOFLOXACIN 750MG/D5W 150ML 150 ML IV SCH (11:15)
[2017-12-12] MEDS: MIDAZOLAM HCL 2 MG/2 ML VIAL IV PRN (12:05)
[2017-12-12 12:30] LABS: ABG HCO3 26 mmol/L (23-28); ABG PCO2 45 mmHg (41-51); ABG PH 7.37 (7.31-7.41); ABG PO2 60 mmHg (80-105)
[2017-12-12] MEDS: FLUCONAZOLE 200 MG/100 ML 100 ML IV SCH (16:00)
[2017-12-12] MEDS ORDERED: MUPIROCIN 2% OINT 22 GM TUBE TOP SCH (17:00)
[2017-12-12] MEDS: [UNRECOGNIZED DRUG - REMARK] PO SCH (22:00)
[2017-12-12] MEDS: STRIBILD PO SCH (22:00)
[2017-12-12] MEDS: SIMVASTATIN 20 MG TAB PO SCH (22:00)
[2017-12-13] VITALS (85 sets, daily range): BP systolic 80–128; BP diastolic 41–93
[2017-12-13] MEDS: MIDAZOLAM HCL 2 MG/2 ML VIAL IV PRN ×2 (02:00→08:56)
[2017-12-13] MEDS: IPRATROPIUM BROMIDE 0.02% 2.5 ML NEB NEB SCH ×6 (03:25→22:45)
[2017-12-13] MEDS: METHYLPREDNISOLONE SOD SUCC 40 MG/ML VIAL IV SCH ×2 (03:56→17:22)
[2017-12-13] MEDS: ACYCLOVIR 200 MG/5 ML SUSP GT SCH ×3 (03:56→16:56)
[2017-12-13] MEDS: ONDANSETRON HCL INJ 2 MG/ML VIAL IV PRN ×2 (03:57→22:56)
[2017-12-13 06:14] LABS: INR 1.03
[2017-12-13 06:15] LABS: PARTIAL THROMBOPLASTIN TIME 23.3 seconds (23.8-35.5)
[2017-12-13] MEDS: TRIMETHOPRIM/SULFAMETHOXAZOLE 160 MG in DEXTROSE 5% 250ML 250 ML IV SCH ×3 (06:18→21:06)
[2017-12-13] MEDS: FUROSEMIDE INJ 10 MG/ML 4 ML VIAL IV SCH (08:54)
[2017-12-13] MEDS: PANTOPRAZOLE 40 MG 10ML VIAL IV SCH ×2 (08:54→17:22)
[2017-12-13] MEDS: CELECOXIB 100 MG CAP PO SCH (08:55)
[2017-12-13] MEDS: FLUOXETINE HCL 20 MG CAP PO SCH (08:55)
[2017-12-13] MEDS: POTASSIUM CHLORIDE 20 MEQ TAB CR PO SCH (08:55)
[2017-12-13] MEDS: TOPIRAMATE 25 MG TAB PO SCH ×3 (08:55→20:10)
[2017-12-13] MEDS: TIZANIDINE HCL 4 MG TAB PO SCH ×2 (08:56→16:55)
[2017-12-13] MEDS ORDERED: EPINEPHRINE HCL INJ 1 MG/ML AMP ONE (10:10)
[2017-12-13] MEDS ORDERED: LIDOCAINE HCL 4% 50 ML BTL ONE (10:10)
[2017-12-13] MEDS ORDERED: LIDOCAINE JELLY 2% 10ML URO-JET ONE (10:11)
[2017-12-13] MEDS: PROPOFOL IV EMULSION 10MG/ML 100 ML IV SCH ×2 (10:30→20:13)
[2017-12-13] MEDS ORDERED: ALBUTEROL/IPRATROPIUM 3 ML NEB ONE ×2 (11:02→11:24)
--- NOTE | 2017-12-13 11:22 | Progress Note ---
DATE: December 13, 2017 REHAB PROGRESS NOTE Ms. Alarcon's chart was reviewed. She is currently undergoing bronchoscopy. Most recent vital signs are temperature 98.2, respirations 18, heart rate 80. Therapy has not been reinitiated yet as she is still intubated. Labs from earlier this morning: White cell count 6.6, hemoglobin 8, hematocrit 25.8, platelets 257. Sodium 138, potassium 3.7, BUN 10, creatinine 0.86. Otherwise, no other changes. I spoke with infectious disease about recent events and current plans. Job#: [id number]
--- NOTE | 2017-12-13 11:23 | Diagnostic Imaging Report ---
PROCEDURE: CHEST XRAY POST PROCEDURE COMPARISON: Portable chest 12/11/2017. INDICATIONS: POST BRONCHOSCOPY FINDINGS: Tracheostomy catheter is present with the tip projecting over the expected region of the trachea, positioned 2 cm from the garcia. Enteric feeding catheter is present with the tip projecting over the expected region of the gastroesophageal junction. Left peripherally inserted central venous catheter with tip projecting over the expected region of the superior vena cava. LUNGS: Bilateral multifocal airspace opacifications. PLEURA: Small left pleural effusion. No pneumothorax. HEART \T\ MEDIASTINUM: The heart is within normal size-limits. Atherosclerotic calcifications. BONES \T\ SOFT TISSUES: No acute findings. Degenerative changes of the thoracic spine. CONCLUSION: Bilateral multifocal airspace opacities may represent a developing pneumonia. Dictated by: Brandon Orozco M.D. on 12/13/2017 at 11:32 Electronically approved by: Brandon Orozco M.D. on 12/13/2017 at 11:32
[2017-12-13] MEDS: LEVOFLOXACIN 750MG/D5W 150ML 150 ML IV SCH (12:01)
--- NOTE | 2017-12-13 12:49 | Operative Report ---
DATE OF PROCEDURE: PREPROCEDURE DIAGNOSIS: Acute hypoxic respiratory failure. POSTPROCEDURE DIAGNOSIS: Mucus plugs in the left lower lobe. PROCEDURE PERFORMED: Bronchoscopy with bronchoalveolar lavage. ANESTHESIA: Patient is intubated and propofol was given. PROCEDURE DETAIL: The bronchoscope was advanced through the ET tube. Criss was identified. Lidocaine was given. Right lung was examined to the segmental level. Right upper lobe, middle lobe, and lower lobe were examined. There were no mucus plugs and no thick secretions were seen. Left upper lobe had no mucus plug. Left lower lobe and lingula had thick mucus plugs, which were suctioned clean. Samples were sent for PCB, gram stain, culture, and fungus. COMPLICATIONS: None. Job#: [id number] SAK
[2017-12-13] MEDS: FLUCONAZOLE 200 MG/100 ML 100 ML IV SCH (17:22)
[2017-12-13] MEDS: SIMVASTATIN 20 MG TAB PO SCH (20:10)
[2017-12-13] MEDS: STRIBILD PO SCH (20:10)
[2017-12-13] MEDS: [UNRECOGNIZED DRUG - REMARK] PO SCH (20:10)
[2017-12-14] VITALS (37 sets, daily range): BP systolic 80–119; BP diastolic 43–76
[2017-12-14] MEDS: ACYCLOVIR 200 MG/5 ML SUSP GT SCH ×2 (01:35→10:00)
[2017-12-14] MEDS: IPRATROPIUM BROMIDE 0.02% 2.5 ML NEB NEB SCH ×6 (03:05→23:20)
[2017-12-14] MEDS ORDERED: SODIUM CHLORIDE 0.9% 250ML 250 ML ONE (05:16)
[2017-12-14] MEDS: ONDANSETRON HCL INJ 2 MG/ML VIAL IV PRN ×3 (05:41→20:31)
[2017-12-14] MEDS: METHYLPREDNISOLONE SOD SUCC 40 MG/ML VIAL IV SCH ×2 (05:41→17:26)
[2017-12-14] MEDS: TRIMETHOPRIM/SULFAMETHOXAZOLE 160 MG in DEXTROSE 5% 250ML 250 ML IV SCH (05:41)
[2017-12-14] MEDS: FUROSEMIDE INJ 10 MG/ML 4 ML VIAL IV SCH (08:32)
[2017-12-14] MEDS: PANTOPRAZOLE 40 MG 10ML VIAL IV SCH ×2 (08:32→17:25)
[2017-12-14] MEDS: CELECOXIB 100 MG CAP PO SCH (09:35)
[2017-12-14] MEDS: FLUOXETINE HCL 20 MG CAP PO SCH (09:36)
[2017-12-14] MEDS: TIZANIDINE HCL 4 MG TAB PO SCH ×2 (09:36→17:26)
[2017-12-14] MEDS: TOPIRAMATE 25 MG TAB PO SCH ×3 (09:36→20:31)
[2017-12-14] MEDS: POTASSIUM CHLORIDE 20 MEQ TAB CR PO SCH (09:37)
[2017-12-14 09:49] LABS: ABG HCO3 30 mmol/L (23-28); ABG PCO2 51 mmHg (41-51); ABG PH 7.37 (7.31-7.41); ABG PO2 51 mmHg (80-105)
[2017-12-14] MEDS ORDERED: LEVALBUTEROL HCL SOLN NEBU 1.25 MG/3 ML NEB ONE ×2 (11:30→15:14)
[2017-12-14] MEDS: MIDAZOLAM HCL 2 MG/2 ML VIAL IV PRN (14:26)
--- NOTE | 2017-12-14 14:29 | Progress Note ---
DATE: Ms. Alarcon remains very comfortable. Laying in bed. Discussed the case with critical care. reviewed her lab. Patient has no complaints. PHYSICAL EXAMINATION GENERAL: She is alert and comfortable. VITALS: Stable. Temperature afebrile. HEENT: She is not icteric. NECK: Supple. CHEST: Few crackles at the bases and coarse. CV: S1 and S2. No murmur. ABDOMEN: Soft. Her PCP smear was negative. IMPRESSION 1. Respiratory failure: Discussed with critical care. I do not think the patient has pneumonia. Will discontinue antibiotics. I think her leukocytosis is reactive from the steroids. Persistent respiratory failure could be either from pulmonary fibrosis versus shunt, which is going to be investigated. Discussed with the patient and the family. 2. Human immunodeficiency virus: Continue with antiretroviral medications. 3. Will follow. Job#: [id number] [facility]
[2017-12-14] MEDS: SIMVASTATIN 20 MG TAB PO SCH (20:31)
[2017-12-14] MEDS: [UNRECOGNIZED DRUG - REMARK] PO SCH (20:31)
[2017-12-14] MEDS: STRIBILD PO SCH (20:31)
[2017-12-14] MEDS: PROPOFOL IV EMULSION 10MG/ML 100 ML IV SCH (20:48)
[2017-12-14] MEDS: LEVALBUTEROL HCL SOLN NEBU 1.25 MG/3 ML NEB INH SCH (23:20)
[2017-12-15] VITALS (47 sets, daily range): BP systolic 54–131; BP diastolic 33–79
[2017-12-15] MEDS: IPRATROPIUM BROMIDE 0.02% 2.5 ML NEB NEB SCH ×5 (02:25→20:05)
[2017-12-15] MEDS: METHYLPREDNISOLONE SOD SUCC 40 MG/ML VIAL IV SCH ×2 (05:19→18:02)
[2017-12-15 07:01] LABS: ALBUMIN 2.7 g/dL (3.5-5.0); ALBUMIN/GLOBULIN RATIO 0.7 (0.8-2.0); ANION GAP 14.5 mmol/L (8-16); CALCIUM 9.6 mg/dL (8.4-10.2); CREATININE, SERUM 0.97 mg/dL (0.57-1.11); POTASSIUM 4.5 mmol/L (3.5-5.1)
[2017-12-15 07:29] LABS: BASOPHILS % 0.1 % (0.0-1.0); HEMATOCRIT 37.2 % (34.2-44.1); HEMOGLOBIN 12.2 g/dL (12.0-16.0); LYMPHOCYTES # (AUTO) 0.4 (1.0-3.2); LYMPHOCYTES % 2.5 % (18.0-39.1); MEAN CORPUSCULAR HEMOGLOBIN 26.5 pg (28-32); MEAN CORPUSCULAR HGB CONC 32.8 g/dL (31-35); MEAN CORPUSCULAR VOLUME 80.7 fL (81-99); MONOCYTES # (AUTO) 1.1 (0.2-0.8); MONOCYTES % 6.2 % (4.4-11.3); NEUTROPHILS # (AUTO) 15.4 (2.1-6.9); NEUTROPHILS % 90.4 % (38.7-80.0); PLATELET COUNT 188 x10e3/uL (140-360); RED BLOOD COUNT 4.61 x10e6/uL (3.6-5.1); RED CELL DISTRIBUTION WIDTH 17.2 % (11.7-14.4)
[2017-12-15] MEDS: LEVALBUTEROL HCL SOLN NEBU 1.25 MG/3 ML NEB INH SCH ×3 (07:30→20:05)
[2017-12-15] MEDS: MIDAZOLAM HCL 2 MG/2 ML VIAL IV PRN (07:57)
[2017-12-15] MEDS: CELECOXIB 100 MG CAP PO SCH (09:00)
[2017-12-15] MEDS: TIZANIDINE HCL 4 MG TAB PO SCH ×2 (09:00→18:02)
[2017-12-15] MEDS: POTASSIUM CHLORIDE 20 MEQ TAB CR PO SCH (09:00)
[2017-12-15] MEDS: FLUOXETINE HCL 20 MG CAP PO SCH (09:00)
[2017-12-15] MEDS: FUROSEMIDE INJ 10 MG/ML 4 ML VIAL IV SCH (09:29)
[2017-12-15] MEDS: PANTOPRAZOLE 40 MG 10ML VIAL IV SCH ×2 (09:29→18:02)
[2017-12-15] MEDS: TOPIRAMATE 100 MG TAB PO SCH ×3 (10:08→23:18)
[2017-12-15] MEDS: LEVALBUTEROL HCL SOLN NEBU 1.25 MG/3 ML NEB INH PRN (11:15)
[2017-12-15] MEDS ORDERED: DEXTROSE 50% SYRINGE 50 ML IV PRN (11:15)
[2017-12-15] MEDS: INSULIN LISPRO 100 UNIT/1 ML 3ML VIAL SQ SCH ×2 (11:30→18:00)
[2017-12-15] MEDS: PROPOFOL IV EMULSION 10MG/ML 100 ML IV SCH (11:36)
[2017-12-15 12:21] LABS: BAND NEUTROPHILS % (MANUAL) 2 %; LYMPHOCYTES % (MANUAL) 5 % (19-48); MONOCYTES % (MANUAL) 5 % (3.4-9.0); NEUTROPHILS % (MANUAL) 88 % (40-74)
[2017-12-15 12:22] LABS: PLATELET ESTIMATE ADEQUATE; PLATELET MORPHOLOGY COMMENT NORMAL; RBC MORPHOLOGY COMMENT NORMAL
[2017-12-15] MEDS: HYDROMORPHONE 0.2MG/ML-SOD CHL 30ML PCA SYRINGE IV PRN (12:40)
[2017-12-15] MEDS ORDERED: TOPIRAMATE 100 MG TAB PO SCH (15:00)
--- NOTE | 2017-12-15 17:19 | Diagnostic Imaging Report ---
Exam:Abdominal radiograph History:Enteric tube Comparison: None available Findings:See impression Impression: Nonobstructive bowel gas pattern. Enteric tube with the distal tip midline overlying the stomach. Signed by: Dr. Nuno Fregoso M.D. on 12/15/2017 5:16 PM
[2017-12-15] MEDS: STRIBILD PO SCH (23:17)
[2017-12-15] MEDS: [UNRECOGNIZED DRUG - REMARK] PO SCH (23:17)
[2017-12-15] MEDS: HEPARIN SOD (PORCINE) 5,000 UNIT/ML VIAL SC SCH (23:18)
[2017-12-15] MEDS: SIMVASTATIN 20 MG TAB PO SCH (23:18)
[2017-12-16] VITALS (83 sets, daily range): BP systolic 66–132; BP diastolic 33–100
[2017-12-16] MEDS: INSULIN LISPRO 100 UNIT/1 ML 3ML VIAL SQ SCH ×4 (00:15→23:45)
[2017-12-16] MEDS: IPRATROPIUM BROMIDE 0.02% 2.5 ML NEB NEB SCH ×7 (00:40→23:12)
[2017-12-16] MEDS: LEVALBUTEROL HCL SOLN NEBU 1.25 MG/3 ML NEB INH SCH ×4 (00:40→19:05)
--- NOTE | 2017-12-16 07:29 | Consultation ---
DATE OF CONSULTATION: December 16, 2017 HOSPITAL CONSULTATION HISTORY OF PRESENT ILLNESS: I was kindly asked to see this 57-year-old woman for evaluation of tracheostomy tube placement. She has required prolonged ventilator support. It is anticipated she will continue to need ventilator support and subsequently pulmonary toilet. Her history of present illness, past medical history and past surgical history were reviewed in detail in the chart. PHYSICAL EXAMINATION NECK: There is no abnormal neck anatomy. ASSESSMENT: Respiratory failure. PLAN: Tracheostomy. Job#: [id number] RI
[2017-12-16] MEDS ORDERED: BENZOCAINE 20% SPR 60 ML CAN ONE (07:46)
[2017-12-16] MEDS ORDERED: SODIUM CHLORIDE 0.9% 1000ML 1,000 ML IV SCH (08:00)
[2017-12-16] MEDS ORDERED: SODIUM CHLORIDE 1 GM TAB PO SCH ×3 (08:00→09:00)
[2017-12-16] MEDS ORDERED: POTASSIUM CHLORIDE 20MEQ/15ML UDC ONE (08:05)
[2017-12-16] MEDS ORDERED: SODIUM CHLORIDE 1 GM TAB ONE (08:05)
[2017-12-16] MEDS: POTASSIUM CHLORIDE 20 MEQ TAB CR PO SCH (09:00)
[2017-12-16] MEDS: TOPIRAMATE 100 MG TAB PO SCH ×3 (09:00→21:37)
[2017-12-16] MEDS: FUROSEMIDE INJ 10 MG/ML 4 ML VIAL IV SCH (09:00)
[2017-12-16] MEDS: CELECOXIB 100 MG CAP PO SCH (09:00)
[2017-12-16] MEDS: HEPARIN SOD (PORCINE) 5,000 UNIT/ML VIAL SC SCH ×2 (09:00→21:38)
[2017-12-16] MEDS: FLUOXETINE HCL 20 MG CAP PO SCH (09:00)
[2017-12-16] MEDS: PANTOPRAZOLE 40 MG 10ML VIAL IV SCH ×2 (09:00→16:45)
[2017-12-16] MEDS: TIZANIDINE HCL 4 MG TAB PO SCH ×2 (09:00→16:45)
[2017-12-16 10:52] LABS: ABG HCO3 28 mmol/L (23-28); ABG PCO2 51 mmHg (41-51); ABG PH 7.35 (7.31-7.41); ABG PO2 69 mmHg (80-105)
[2017-12-16] MEDS: MIDAZOLAM HCL 2 MG/2 ML VIAL IV PRN ×2 (11:25→21:39)
--- NOTE | 2017-12-16 11:25 | Diagnostic Imaging Report ---
PROCEDURE: A single AP view of the chest. COMPARISON: 12/13/17 INDICATIONS: ARDS FINDINGS: Lines/tubes: Stable endotracheal tube. Nasogastric tube in place with side port above the gastroesophageal junction. Recommend advancement. Stable left PICC. Lungs: Central vascular congestion and mild interstitial edema. Pleura: There is no visible pneumothorax. Trace bilateral pleural effusions suspected. Heart and mediastinum: The cardiac silhouette is enlarged on this AP view. Bones: No acute bony abnormality. IMPRESSION: Nasogastric tube in place with side port above the gastroesophageal junction. Recommend advancement. Otherwise, no significant interval change or from prior exam. Mild interstitial edema. Underlying infiltrate cannot be excluded. Dictated by: Jamey Lo M.D. on 12/16/2017 at 11:33 Electronically approved by: Jamey Lo M.D. on 12/16/2017 at 11:33
[2017-12-16] MEDS: PROPOFOL IV EMULSION 10MG/ML 100 ML IV SCH (12:30)
--- NOTE | 2017-12-16 14:37 | Progress Note ---
DATE: December 16, 2017 Ms. Alarcon is seen on rounds today. Today underwent a bubble study at bedside. No evidence of ASD or VSD. The patient overall is doing about the same, still awake, alert, and on the vent. PHYSICAL EXAMINATION HEART: Regular. LUNGS: Fair air entry. ABDOMEN: Nontender and nondistended. NECK: No JVD. Overall, doing a little bit better. Continue supportive care. I spoke to the family. Schedule for tracheostomy tomorrow. Will resume therapy as she can tolerate it. Job#: [id number]
[2017-12-16] MEDS: LEVALBUTEROL HCL SOLN NEBU 1.25 MG/3 ML NEB INH PRN (14:58)
[2017-12-16] MEDS: METHYLPREDNISOLONE SOD SUCC 40 MG/ML VIAL IV SCH ×2 (17:55→18:00)
--- NOTE | 2017-12-16 18:02 | Diagnostic Imaging Report ---
EXAM: CT Chest WITHOUT contrast INDICATION: \S\SOB \[id number] \S\1650 COMPARISON: Chest CT dated 12/07/2017 TECHNIQUE: Chest was scanned utilizing a multidetector helical scanner from the lung apex through the level of the adrenal glands without administration of IV contrast. Absence of intravenous contrast decreases sensitivity for detection of lymphadenopathy and vascular pathology. Coronal and sagittal reformations were obtained. Routine protocol was performed. IV CONTRAST: None COMPLICATIONS: None RADIATION DOSE: Total DLP: 486.66 mGy*cm Estimated effective dose: (DLP x 0.014 x size factor) mSv CTDIvol has been reviewed. It is below the limits set by the Radiation Protocol Committee (RPC). FINDINGS: LINES/ TUBES: Endotracheal tube in place with tip approximately 2.4 cm above garcia. Orogastric tube in place with tip outside the [id number]. Left upper extremity PICC line in place with tip terminating at inferior SVC. LUNGS , PLEURA, AND AIRWAYS: Redemonstration of diffuse groundglass opacities with interlobular septal thickening. Mild bronchiectasis especially in the lower lobes. New small left apical pneumothorax. Irregularity of the posterior mid tracheal wall (series 3, image 33 or series 400 image 67). PLEURA: The pleural spaces are clear. HEART AND MEDIASTINUM: The thyroid gland is normal. No mediastinal, hilar or axillary lymphadenopathy. The heart is normal in size.. There is no pericardial effusion. Main pulmonary artery measures 3.8 cm, suggestive of pulmonary hypertension. New pneumomediastinum extending to the neck bases and pneumopericardium. UPPER ABDOMEN: Unremarkable. BONES: The visualized bony thorax is within normal limits. SOFT TISSUES: Unremarkable. IMPRESSION: New small left pneumothorax, pneumomediastinum, and pneumopericardium. Mild posterior mid tracheal wall irregularity (adjacent to the tip of endotracheal tube) could represent bronchial wall injury. Redemonstration of diffuse groundglass opacities with interlobular septal thickening. Differentials include acute respiratory distress syndrome, acute interstitial pneumonia,and pulmonary alveolar proteinosis. Superimposed pulmonary edema cannot be excluded. Findings discussed with Dr. Nettles at 5:55 PM, on 12/16/2017. Signed by: Dr. Jamey Lo MD on 12/16/2017 5:58 PM
[2017-12-16] MEDS: STRIBILD PO SCH (21:37)
[2017-12-16] MEDS: SIMVASTATIN 20 MG TAB PO SCH (21:37)
[2017-12-16] MEDS: [UNRECOGNIZED DRUG - REMARK] PO SCH (21:37)
[2017-12-17] VITALS (92 sets, daily range): BP systolic 52–141; BP diastolic 31–108
[2017-12-17] MEDS: IPRATROPIUM BROMIDE 0.02% 2.5 ML NEB NEB SCH ×5 (02:10→19:15)
[2017-12-17] MEDS: LEVALBUTEROL HCL SOLN NEBU 1.25 MG/3 ML NEB INH SCH ×4 (02:10→19:15)
[2017-12-17] MEDS: MIDAZOLAM HCL 2 MG/2 ML VIAL IV PRN ×2 (02:33→23:49)
[2017-12-17] MEDS: INSULIN LISPRO 100 UNIT/1 ML 3ML VIAL SQ SCH ×4 (05:08→23:58)
[2017-12-17] MEDS: METHYLPREDNISOLONE SOD SUCC 40 MG/ML VIAL IV SCH ×2 (05:38→18:00)
--- NOTE | 2017-12-17 06:30 | Diagnostic Imaging Report ---
EXAM: CHEST SINGLE (PORTABLE), AP 1 view DATE: 12/17/2017 7:00 AM Time stamp on exam: 0549 hours INDICATION: ARDS COMPARISON: AP view of the chest December 16, [address] of the chest December 16, 2017 FINDINGS: LINES/TUBES: Endotracheal tube 3.5 cm above stable position of left approach PICC. The garcia. Nasal/orogastric tube terminates in expected location of the proximal stomach. LUNGS: Table bilateral interstitial and alveolar opacities. PLEURA: Trace left apical pneumothorax. HEART AND MEDIASTINUM: Stable cardiac size and stable pneumomediastinum. BONES AND SOFT TISSUES: No acute findings. IMPRESSION: 1. Stable appearance of the lungs. 2. Trace left apical pneumothorax. 3. Pneumomediastinum. Signed by: Dr. Sagrario Kelly M.D. on 12/17/2017 6:26 AM
[2017-12-17] MEDS: HEPARIN SOD (PORCINE) 5,000 UNIT/ML VIAL SC SCH ×2 (09:00→21:10)
[2017-12-17] MEDS: PANTOPRAZOLE 40 MG 10ML VIAL IV SCH ×2 (09:00→18:00)
[2017-12-17] MEDS: TOPIRAMATE 100 MG TAB PO SCH ×3 (09:00→21:09)
[2017-12-17] MEDS: FUROSEMIDE INJ 10 MG/ML 4 ML VIAL IV SCH (09:00)
[2017-12-17] MEDS: POTASSIUM CHLORIDE 20 MEQ TAB CR PO SCH (09:00)
[2017-12-17] MEDS: CELECOXIB 100 MG CAP PO SCH (09:00)
[2017-12-17] MEDS: TIZANIDINE HCL 4 MG TAB PO SCH ×2 (09:00→18:00)
[2017-12-17] MEDS: FLUOXETINE HCL 20 MG CAP PO SCH (09:00)
[2017-12-17] MEDS ORDERED: POTASSIUM CHLORIDE 20MEQ/15ML UDC ONE (09:13)
[2017-12-17] MEDS: ACETAMINOPHEN 325 MG TAB PO PRN ×2 (09:35→14:31)
[2017-12-17] MEDS: LEVALBUTEROL HCL SOLN NEBU 1.25 MG/3 ML NEB INH PRN (11:28)
[2017-12-17] MEDS: PROPOFOL IV EMULSION 10MG/ML 100 ML IV SCH (12:30)
--- NOTE | 2017-12-17 12:45 | Consultation ---
DATE OF CONSULTATION: December 14, 2017 CARDIOLOGY CONSULTATION ATTENDING PHYSICIAN: Dr. Bowles. CHIEF COMPLAINT: Consultation is asked for consideration of shunt evaluation. Thank you for asking me to see this nice lady in consultation. HISTORY OF PRESENT ILLNESS: Ms. Alarcon is a complex 57-year-old lady with HIV and hospitalized since November 26, 2017 when she presented with bilateral pneumonia. Patient has been on ventilator and is unable to be weaned with requirement of high oxygen saturations and PEEP with consideration that could there possibly be cardiac shunt. PAST MEDICAL HISTORY: Significant for HIV, treated with antiretroviral medications. She has type 2 adult-onset diabetes and hypertension. She had remote surgeries of hysterectomy and back surgery. REVIEW OF SYSTEMS: The patient never known of any cardiac problem, although she was told when she was a young lady that she had mitral valve prolapse. She has not had chest pain or palpitations in the past. The patient and her daughter tell me that her energy level has been decreasing in the last weeks and months, inability finally to go to the grocery store for shopping. PHYSICAL EXAMINATION GENERAL: At this time shows a pleasant alert lady on ventilator, who responds by nodding and writing notes. VITAL SIGNS: Blood pressure 100/50, pulse 80 and regular. HEENT: Unremarkable. NECK: No jugular venous distention visible. THORAX: Sounds S1, S2 are equal. No murmurs. LUNGS: Distant breath sounds with faint crackles. ABDOMEN: Protuberant. EXTREMITIES: No cyanosis, clubbing or edema. IMAGING AND LABORATORY DATA: EKG shows sinus rhythm without ST or T-wave changes. Recent chemistries show a glucose 224, BUN 27, creatinine 0.8. CBC on December 12, 2017 showed a white count 16.7, hemoglobin 11.9, hematocrit 36.1. Review of echocardiogram performed earlier this month shows normal left ventricular function with mild left ventricular hypertrophy with [id number] mitral regurgitation. ASSESSMENT 1. Bilateral pneumonia. 2. Human immunodeficiency virus. 3. Type 2 adult-onset diabetes. 4. Consideration of atrial septal defect or ventricular septal defect. PLAN: Patient does not have any audible murmur. Likelihood of the cardiac shunt is low, but we will perform a bubble study with imaging to assess for shunt. Thank you for asking me to see her in consultation. Job#: [id number] [facility] cc:MD Zonia Reed MD
[2017-12-17] MEDS: STRIBILD PO SCH (21:09)
[2017-12-17] MEDS: SIMVASTATIN 20 MG TAB PO SCH (21:09)
[2017-12-17] MEDS: [UNRECOGNIZED DRUG - REMARK] PO SCH (21:09)
[2017-12-18] VITALS (92 sets, daily range): BP systolic 78–136; BP diastolic 48–106
[2017-12-18] MEDS: LEVALBUTEROL HCL SOLN NEBU 1.25 MG/3 ML NEB INH SCH ×5 (00:15→19:15)
[2017-12-18] MEDS: IPRATROPIUM BROMIDE 0.02% 2.5 ML NEB NEB SCH ×7 (00:15→23:18)
[2017-12-18] MEDS: ACETAMINOPHEN 325 MG TAB PO PRN (02:08)
[2017-12-18] MEDS: MIDAZOLAM HCL 2 MG/2 ML VIAL IV PRN ×7 (02:39→23:55)
[2017-12-18] MEDS: INSULIN LISPRO 100 UNIT/1 ML 3ML VIAL SQ SCH (05:07)
[2017-12-18] MEDS: METHYLPREDNISOLONE SOD SUCC 40 MG/ML VIAL IV SCH ×2 (05:31→16:47)
--- NOTE | 2017-12-18 06:06 | Diagnostic Imaging Report ---
EXAM: CHEST SINGLE (PORTABLE), AP 1 view ORDER DATE: 12/18/2017 7:00 AM Time stamp on exam: 0533 hours INDICATION: Intubated COMPARISON: AP view of the chest December 17, 2017 FINDINGS: LINES/TUBES: Endotracheal tube terminates 4 cm above the garcia. Stable left approach PICC. Nasal/orogastric tube terminates in the distal stomach. LUNGS: Stable bilateral airspace opacities. PLEURA: Trace left apical pneumothorax. HEART AND MEDIASTINUM: Stable cardiac size and stable pneumomediastinum. BONES AND SOFT TISSUES: No acute findings. IMPRESSION: No interval change. Trace left apical pneumothorax. Signed by: Dr. Sagrario Kelly M.D. on 12/18/2017 6:03 AM
[2017-12-18 06:08] LABS: BASOPHILS % 0.1 % (0.0-1.0); HEMATOCRIT 39.7 % (34.2-44.1); HEMOGLOBIN 12.8 g/dL (12.0-16.0); LYMPHOCYTES # (AUTO) 0.2 (1.0-3.2); LYMPHOCYTES % 0.9 % (18.0-39.1); MEAN CORPUSCULAR HEMOGLOBIN 26.9 pg (28-32); MEAN CORPUSCULAR HGB CONC 32.2 g/dL (31-35); MEAN CORPUSCULAR VOLUME 83.6 fL (81-99); MONOCYTES # (AUTO) 0.8 (0.2-0.8); MONOCYTES % 4.2 % (4.4-11.3); NEUTROPHILS # (AUTO) 17.9 (2.1-6.9); NEUTROPHILS % 94.1 % (38.7-80.0); PLATELET COUNT 151 x10e3/uL (140-360); RED BLOOD COUNT 4.75 x10e6/uL (3.6-5.1); RED CELL DISTRIBUTION WIDTH 18.9 % (11.7-14.4)
[2017-12-18 06:41] LABS: ANION GAP 13.1 mmol/L (8-16); CALCIUM 9.8 mg/dL (8.4-10.2); CREATININE, SERUM 1.06 mg/dL (0.57-1.11); POTASSIUM 4.1 mmol/L (3.5-5.1)
[2017-12-18] MEDS ORDERED: INSULIN REGULAR, HUMAN 3ML VL 300 UNIT in SODIUM CHLORIDE 0.45% 100 ML 300 ML IV SCH ×2 (07:54)
[2017-12-18] MEDS ORDERED: DEXTROSE 50% SYRINGE 50 ML IV PRN (08:00)
[2017-12-18] MEDS ORDERED: INSULIN REGULAR, HUMAN 3ML VL 100 UNIT in SODIUM CHLORIDE 0.45% 100 ML 100 ML IV SCH ×2 (08:15)
[2017-12-18] MEDS ORDERED: CHLORASEPTIC SPRAY 177 ML BTL MM PRN (08:45)
[2017-12-18 09:13] LABS: LYMPHOCYTES % (MANUAL) 1 % (19-48); MONOCYTES % (MANUAL) 3 % (3.4-9.0); NEUTROPHILS % (MANUAL) 95 % (40-74); NUCLEATED RED BLOOD CELLS 1
[2017-12-18] MEDS: PANTOPRAZOLE 40 MG 10ML VIAL IV SCH ×2 (09:56→16:46)
[2017-12-18] MEDS: CELECOXIB 100 MG CAP PO SCH (09:56)
[2017-12-18] MEDS: POTASSIUM CHLORIDE 20 MEQ TAB CR PO SCH (09:56)
[2017-12-18] MEDS: FUROSEMIDE INJ 10 MG/ML 4 ML VIAL IV SCH (09:56)
[2017-12-18] MEDS: TIZANIDINE HCL 4 MG TAB PO SCH ×2 (09:56→16:47)
[2017-12-18] MEDS: FLUOXETINE HCL 20 MG CAP PO SCH (09:56)
[2017-12-18] MEDS: TOPIRAMATE 100 MG TAB PO SCH ×3 (09:56→21:30)
[2017-12-18] MEDS: HEPARIN SOD (PORCINE) 5,000 UNIT/ML VIAL SC SCH ×2 (09:57→21:31)
[2017-12-18] MEDS: PROPOFOL IV EMULSION 10MG/ML 100 ML IV SCH (11:58)
[2017-12-18] MEDS: STRIBILD PO SCH (21:30)
[2017-12-18] MEDS: [UNRECOGNIZED DRUG - REMARK] PO SCH (21:30)
[2017-12-18] MEDS: SIMVASTATIN 20 MG TAB PO SCH (21:30)
[2017-12-18] MEDS: HYDROMORPHONE 0.2MG/ML-SOD CHL 30ML PCA SYRINGE IV PRN (22:30)
[2017-12-19] VITALS (52 sets, daily range): BP systolic 78–148; BP diastolic 28–99
[2017-12-19] MEDS: HYDROMORPHONE 0.2MG/ML-SOD CHL 30ML PCA SYRINGE IV PRN
[2017-12-19] MEDS: MIDAZOLAM HCL 2 MG/2 ML VIAL IV PRN ×5 (02:11→12:22)
[2017-12-19] MEDS: LEVALBUTEROL HCL SOLN NEBU 1.25 MG/3 ML NEB INH SCH ×3 (03:30→19:15)
[2017-12-19] MEDS: IPRATROPIUM BROMIDE 0.02% 2.5 ML NEB NEB SCH ×5 (03:30→23:30)
[2017-12-19] MEDS: METHYLPREDNISOLONE SOD SUCC 40 MG/ML VIAL IV SCH ×2 (05:33→22:31)
[2017-12-19 07:27] LABS: BASOPHILS % 0.2 % (0.0-1.0); HEMOGLOBIN 13.9 g/dL (12.0-16.0); LYMPHOCYTES # (AUTO) 0.3 (1.0-3.2); LYMPHOCYTES % 1.3 % (18.0-39.1); MEAN CORPUSCULAR HEMOGLOBIN 26.9 pg (28-32); MEAN CORPUSCULAR HGB CONC 32.3 g/dL (31-35); MEAN CORPUSCULAR VOLUME 83.2 fL (81-99); MONOCYTES # (AUTO) 1.5 (0.2-0.8); MONOCYTES % 6.5 % (4.4-11.3); NEUTROPHILS # (AUTO) 20.3 (2.1-6.9); NEUTROPHILS % 90.7 % (38.7-80.0); PLATELET COUNT 123 x10e3/uL (140-360); RED BLOOD COUNT 5.17 x10e6/uL (3.6-5.1); RED CELL DISTRIBUTION WIDTH 19.4 % (11.7-14.4)
[2017-12-19 07:50] LABS: ANION GAP 17.5 mmol/L (8-16); BLOOD UREA NITROGEN 73 mg/dL (7-26); BUN/CREATININE RATIO 92 (6-25); CALCIUM 10.6 mg/dL (8.4-10.2); CARBON DIOXIDE 30 mmol/L (22-29); CHLORIDE 105 mmol/L (98-107); CREATININE, SERUM 0.79 mg/dL (0.57-1.11); EST GLOMERULAR FILTRATION RATE > 60 ML/MIN (60-); GLUCOSE 225 mg/dL (74-118); POTASSIUM 3.5 mmol/L (3.5-5.1); SODIUM 149 mmol/L (136-145)
[2017-12-19] MEDS: PANTOPRAZOLE 40 MG 10ML VIAL IV SCH ×2 (08:37→22:31)
[2017-12-19] MEDS: FUROSEMIDE INJ 10 MG/ML 4 ML VIAL IV SCH (08:37)
[2017-12-19] MEDS: CELECOXIB 100 MG CAP PO SCH (08:37)
[2017-12-19] MEDS: TIZANIDINE HCL 4 MG TAB PO SCH ×2 (08:38→17:00)
[2017-12-19] MEDS: FLUOXETINE HCL 20 MG CAP PO SCH (08:38)
[2017-12-19] MEDS: POTASSIUM CHLORIDE 20 MEQ TAB CR PO SCH (08:38)
[2017-12-19] MEDS: HEPARIN SOD (PORCINE) 5,000 UNIT/ML VIAL SC SCH ×2 (08:38→22:31)
[2017-12-19] MEDS: TOPIRAMATE 100 MG TAB PO SCH ×3 (08:38→21:00)
[2017-12-19] MEDS: PROPOFOL IV EMULSION 10MG/ML 100 ML IV SCH ×3 (08:39→22:15)
[2017-12-19] MEDS ORDERED: POTASSIUM CHLORIDE 20MEQ/100ML 200 ML IV ONE (09:00)
--- NOTE | 2017-12-19 09:06 | Diagnostic Imaging Report ---
This report includes an Addendum and supersedes previous reports for this exam. PROCEDURE:CHEST SINGLE (PORTABLE) TECHNIQUE:Portable AP chest INDICATION:Pneumonia COMPARISON:[facility], DX, CHEST SINGLE (PORTABLE), 12/18/2017, 5:33. FINDINGS: See conclusion. CONCLUSION: 1. Endotracheal tube tip about 4.7 cm from the garcia. 2. Nasogastric tube crossing the diaphragm. 3. Left PICC terminating in the mid SVC. 4. Interval development of a small left pneumothorax with an air gap of 3 mm. 5. Increased bilateral lower lobe air space opacities suggesting evolving pneumonia. No cavitation. 6. Stable cardiomediastinal silhouette with normal heart size. Dr. Bowles was paged with these findings at 9:15 AM December 19, 2017 Dictated by: Tristin Cantu M.D. on 12/19/2017 at 9:15 Electronically approved by: Tristin Cantu M.D. on 12/19/2017 at 9:15 ADDENDUM: A 4 mm pneumothorax on the right is stable given differences in positioning. Subcutaneous emphysema on the right is slightly increased. Dictated by: Tristin Cantu M.D. on 12/19/2017 at 9:22 Electronically approved by: Tristin Cantu M.D. on 12/19/2017 at 9:22
[2017-12-19 09:10] LABS: INR 0.96; PROTHROMBIN TIME 13.3 seconds (11.9-14.5)
--- NOTE | 2017-12-19 09:53 | Diagnostic Imaging Report ---
PROCEDURE:CHEST SINGLE (PORTABLE) TECHNIQUE:Portable AP chest INDICATION:Endotracheal tube evaluation COMPARISON:Patients [facility], , CHEST SINGLE (PORTABLE), 12/19/2017, 8:42. FINDINGS: See conclusion. CONCLUSION: 1. Stable known pneumothoraces bilaterally. Maximal air gap on the right 5 mm; on the left 4 mm. 2. Endotracheal tube tip about 5.5 cm from the garcia 3. Findings are otherwise unchanged from 8:42 AM. Dictated by: Tristin Cantu M.D. on 12/19/2017 at 10:02 Electronically approved by: Tristin Cantu M.D. on 12/19/2017 at 10:02
[2017-12-19] MEDS ORDERED: POTASSIUM CHLORIDE 100 ML IV SCH (10:00)
[2017-12-19 10:06] LABS: ABG HCO3 31 mmol/L (23-28); ABG PCO2 51 mmHg (41-51); ABG PO2 56 mmHg (80-105)
[2017-12-19] MEDS ORDERED: LIDOCAINE 1% W/EPINEPHRINE 20 ML VIAL ONE (10:25)
[2017-12-19] MEDS: LEVALBUTEROL HCL SOLN NEBU 1.25 MG/3 ML NEB INH PRN (11:05)
[2017-12-19] MEDS ORDERED: MICROFIBRILLER COLLAGEN HEMOSTAT 1 GM POWDER TP ONE (11:47)
--- NOTE | 2017-12-19 16:40 | Diagnostic Imaging Report ---
PROCEDURE: A single AP view of the chest. COMPARISON: Chest radiograph 12/19/2017 at 0940 hrs. INDICATIONS: NG TUBE PLACEMENT FINDINGS: Limited radiograph for tube placement purposes. The mid and upper chest are out of the field of view. See impression. IMPRESSION: 1. NG tube takes a hair-pin turn in the gastric body back towards the GE junction. The tip overlies the GE junction. Recommend repositioning. 2. Previous bilateral pneumothoraces are better seen on the prior radiograph with the full chest in view. 3. Small left pleural effusion and pulmonary edema. 4. Retrocardiac opacity may represent atelectasis or consolidation. 1. Dictated by: Yariel Lucio M.D. on 12/19/2017 at 16:49 Electronically approved by: Yariel Lucio M.D. on 12/19/2017 at 16:49
--- NOTE | 2017-12-19 16:55 | Operative Report ---
DATE OF PROCEDURE: December 19, 2017 PREOPERATIVE DIAGNOSIS: Respiratory failure. POSTOPERATIVE DIAGNOSIS: Respiratory failure. PROCEDURE: Tracheostomy. ANESTHESIA: General endotracheal. ESTIMATED BLOOD LOSS: Zero. COMPLICATIONS: None. OPERATIVE FINDINGS: Normal neck anatomy. OPERATIVE INDICATIONS: This 57-year-old woman presented with a history of respiratory failure which necessitated prolonged intubation. It is anticipated she will continue to need ventilator support and subsequent pulmonary toilet. The risks, benefits and alternatives to surgical intervention were discussed with the patient and her family, and they gave their informed consent to have this procedure performed. NARRATIVE REPORT: After first obtaining adequate general anesthesia through a previously placed endotracheal tube, the area of incision was infiltrated with 1% lidocaine with epinephrine at 1:100,000, a total of 8 mL was used. The patient was then prepped and draped in the usual fashion. A 3-cm incision was then made 2 cm above the sternal notch with a 15 blade and carried through the subcutaneous tissues with the Bovie oracle analyst. The strap muscles were identified and divided in the midline with a Britta hemostat. The strap muscles were then reflected laterally with a Gelpi retractor. The thyroid isthmus was transected using the Bovie oracle analyst. The cricoid hook was then inserted and incision was made between the 2nd and 3rd tracheal ring with a #15 blade inferiorly-based trapezoidal flap was then created using curved Tapia scissors. The endotracheal tube was partially withdrawn and a #8 [employer] tracheostomy tube easily inserted through the tracheostomy site. CO2 confirmed the exhaled gases. The retractors were removed and the patient was in satisfactory condition at the termination of the procedure. The tracheostomy tube was sutured in place with 2-0 nylon and trach ties were applied. Job#: [id number]
[2017-12-19] MEDS ORDERED: SEVOFLURANE INHAL SOLN 250 ML PEN BTL ONE (18:15)
[2017-12-19] MEDS ORDERED: ROCURONIUM BROMIDE 10 MG/ML 5ML VIAL ONE (18:15)
[2017-12-19] MEDS ORDERED: FENTANYL CITRATE/PF 100MCG/2 ML INJ ONE (19:09)
[2017-12-19] MEDS ORDERED: MIDAZOLAM HCL 2 MG/2 ML VIAL ONE (19:09)
--- NOTE | 2017-12-19 19:23 | Diagnostic Imaging Report ---
PROCEDURE: A single AP view of the chest. COMPARISON: Chest radiograph 12/20/2017 at 1622 hrs. INDICATIONS: NG TUBE PLACEMENT FINDINGS: Limited radiograph for tube placement purposes. The mid and upper chest are out of the field of view. See impression. IMPRESSION: 1. NG tube tip currently overlies the gastric antrum. Side hole overlies the gastric body. 2. Previous bilateral pneumothoraces are better seen on the radiograph on 12/19/2017 with the full chest in view. 3. Stable small left pleural effusion and pulmonary edema. 4. Stable left retrocardiac opacity which may represent atelectasis or consolidation. Electronically approved by: Yariel Lucio M.D. on 12/19/2017 at 19:32
[2017-12-19] MEDS ORDERED: SODIUM CHLORIDE 0.9% 1000ML 1,000 ML ONE (20:44)
[2017-12-19] MEDS: STRIBILD PO SCH (21:00)
[2017-12-19] MEDS: [UNRECOGNIZED DRUG - REMARK] PO SCH (21:00)
[2017-12-19] MEDS: SIMVASTATIN 20 MG TAB PO SCH (21:00)
[2017-12-20] VITALS (91 sets, daily range): BP systolic 70–162; BP diastolic 35–147
[2017-12-20] MEDS: IPRATROPIUM BROMIDE 0.02% 2.5 ML NEB NEB SCH ×6 (00:23→19:19)
[2017-12-20] MEDS: LEVALBUTEROL HCL SOLN NEBU 1.25 MG/3 ML NEB INH SCH ×4 (02:50→19:19)
[2017-12-20] MEDS: HYDROMORPHONE 0.2MG/ML-SOD CHL 30ML PCA SYRINGE IV PRN (05:45)
[2017-12-20 06:06] LABS: BASOPHILS # (AUTO) 0.1 (0.0-0.1); BASOPHILS % 0.3 % (0.0-1.0); HEMATOCRIT 41.3 % (34.2-44.1); LYMPHOCYTES # (AUTO) 0.5 (1.0-3.2); LYMPHOCYTES % 2.3 % (18.0-39.1); MEAN CORPUSCULAR HEMOGLOBIN 26.6 pg (28-32); MEAN CORPUSCULAR HGB CONC 31.5 g/dL (31-35); MEAN CORPUSCULAR VOLUME 84.5 fL (81-99); MONOCYTES # (AUTO) 1.6 (0.2-0.8); MONOCYTES % 7.9 % (4.4-11.3); NEUTROPHILS # (AUTO) 17.4 (2.1-6.9); NEUTROPHILS % 86.9 % (38.7-80.0); PLATELET COUNT 119 x10e3/uL (140-360); RED BLOOD COUNT 4.89 x10e6/uL (3.6-5.1); RED CELL DISTRIBUTION WIDTH 20.7 % (11.7-14.4)
[2017-12-20] MEDS: METHYLPREDNISOLONE SOD SUCC 40 MG/ML VIAL IV SCH ×2 (06:20→17:39)
--- NOTE | 2017-12-20 06:30 | Diagnostic Imaging Report ---
EXAM: CHEST SINGLE (PORTABLE), AP 1 view ORDER DATE: 12/20/2017 5:00 AM Time stamp on exam: 0524 hours INDICATION: Intubated COMPARISON: AP view of the chest December 19, 2017 FINDINGS: LINES/TUBES: Interval placement of tracheostomy tube. Nasal/orogastric tube terminates in etc. location of the antrum of the stomach. Stable position left approach PICC. LUNGS: Diffuse bilateral airspace opacities. PLEURA: Trace left apical pneumothorax. Trace right apical pneumothorax. HEART AND MEDIASTINUM: Stable appearance. BONES AND SOFT TISSUES: No acute findings. IMPRESSION: Interval tracheostomy, otherwise no significant interval change. Trace left apical pneumothorax. Trace right apical pneumothorax. Signed by: Dr. Sagrario Kelly M.D. on 12/20/2017 6:27 AM
[2017-12-20 06:39] LABS: ANION GAP 17.1 mmol/L (8-16); BLOOD UREA NITROGEN 71 mg/dL (7-26); BUN/CREATININE RATIO 85 (6-25); CALCIUM 10.2 mg/dL (8.4-10.2); CARBON DIOXIDE 26 mmol/L (22-29); CHLORIDE 113 mmol/L (98-107); CREATININE, SERUM 0.84 mg/dL (0.57-1.11); EST GLOMERULAR FILTRATION RATE > 60 ML/MIN (60-); GLUCOSE 225 mg/dL (74-118); POTASSIUM 4.1 mmol/L (3.5-5.1); SODIUM 152 mmol/L (136-145)
[2017-12-20] MEDS ORDERED: DEXTROSE 5% 1,000 ML IV ONE ×2 (08:00)
[2017-12-20 08:26] LABS: LYMPHOCYTES % (MANUAL) 3 % (19-48); MONOCYTES % (MANUAL) 6 % (3.4-9.0); NEUTROPHILS % (MANUAL) 91 % (40-74)
[2017-12-20 08:27] LABS: ANISOCYTOSIS SLIGHT; HYPOCHROMASIA SLIGHT; PLATELET ESTIMATE SLIGHTLY DECREASED; PLATELET MORPHOLOGY COMMENT FEW LARGE; RBC MORPHOLOGY COMMENT NORMAL; STOMATOCYTES SLIGHT; TARGET CELLS FEW
[2017-12-20] MEDS: PANTOPRAZOLE 40 MG 10ML VIAL IV SCH ×2 (09:00→17:00)
[2017-12-20] MEDS: FLUOXETINE HCL 20 MG CAP PO SCH (09:00)
[2017-12-20] MEDS ORDERED: POTASSIUM CHLORIDE 20MEQ/15ML UDC ONE (09:39)
[2017-12-20] MEDS: CELECOXIB 100 MG CAP PO SCH (09:40)
[2017-12-20] MEDS: HEPARIN SOD (PORCINE) 5,000 UNIT/ML VIAL SC SCH (09:40)
[2017-12-20] MEDS: TOPIRAMATE 100 MG TAB PO SCH ×2 (09:40→16:20)
[2017-12-20] MEDS: POTASSIUM CHLORIDE 20 MEQ TAB CR PO SCH (09:40)
[2017-12-20] MEDS: TIZANIDINE HCL 4 MG TAB PO SCH ×2 (09:40→17:00)
[2017-12-20] MEDS: PROPOFOL IV EMULSION 10MG/ML 100 ML IV SCH ×2 (09:49→20:00)
[2017-12-20] MEDS: LEVALBUTEROL HCL SOLN NEBU 1.25 MG/3 ML NEB INH PRN (11:48)
--- NOTE | 2017-12-20 16:35 | Diagnostic Imaging Report ---
PROCEDURE:X-RAY ABDOMEN - KUB COMPARISON:None. INDICATIONS:NG TUBE PLACEMENT FINDINGS: See conclusion. CONCLUSION: 1. Limited exam. Distal portion of an enteric tube is noted below the left hemidiaphragm, with distal tip projecting in the expected location of the stomach body. 2. Visualized bowel shows a nonobstructive gas pattern. 3. Visualized bony structures are intact. Artie Ibrahim M.D. Dictated by: Artie Ibrahim M.D. on 12/20/2017 at 16:44 Electronically approved by: Artie Ibrahim M.D. on 12/20/2017 at 16:44
[2017-12-21] VITALS (92 sets, daily range): BP systolic 60–118; BP diastolic 24–101
[2017-12-21] MEDS: [UNRECOGNIZED DRUG - REMARK] PO SCH ×2 (02:01→21:12)
[2017-12-21] MEDS: SIMVASTATIN 20 MG TAB PO SCH ×2 (02:02→21:12)
[2017-12-21] MEDS: HEPARIN SOD (PORCINE) 5,000 UNIT/ML VIAL SC SCH ×3 (02:02→21:13)
[2017-12-21] MEDS: TOPIRAMATE 100 MG TAB PO SCH ×4 (02:02→21:12)
[2017-12-21] MEDS: STRIBILD PO SCH ×2 (02:02→21:12)
[2017-12-21] MEDS: IPRATROPIUM BROMIDE 0.02% 2.5 ML NEB NEB SCH ×6 (03:25→23:32)
[2017-12-21] MEDS ORDERED: SODIUM CHLORIDE 0.9% 1000ML 1,000 ML ONE (03:26)
[2017-12-21] MEDS: LEVALBUTEROL HCL SOLN NEBU 1.25 MG/3 ML NEB INH SCH ×4 (03:28→18:46)
[2017-12-21] MEDS: PROPOFOL IV EMULSION 10MG/ML 100 ML IV SCH ×2 (04:30→16:55)
[2017-12-21] MEDS: METHYLPREDNISOLONE SOD SUCC 40 MG/ML VIAL IV SCH ×2 (06:20→18:00)
[2017-12-21] MEDS ORDERED: SODIUM CHLORIDE 0.9% 1000ML 1,000 ML IV PRN (06:30)
--- NOTE | 2017-12-21 06:41 | Diagnostic Imaging Report ---
EXAM: CHEST SINGLE (PORTABLE), AP 1 view ORDER DATE: 12/21/2017 7:00 AM Time stamp on exam: O6 100 hours INDICATION: ARDS COMPARISON: AP view of the chest and/or second 2018 FINDINGS: LINES/TUBES: Tracheotomy tube and nasal/orogastric tube. Stable left approach PICC. LUNGS: Stable dense consolidations bilaterally. PLEURA: Small bilateral apical pneumothoraces HEART AND MEDIASTINUM: Stable BONES AND SOFT TISSUES: No acute findings. IMPRESSION: Stable small biapical pneumothoraces Signed by: Dr. Sagrario Kelly M.D. on 12/21/2017 6:37 AM
[2017-12-21] MEDS ORDERED: POTASSIUM CHLORIDE 20MEQ/15ML UDC ONE (07:34)
[2017-12-21] MEDS ORDERED: DEXTROSE 5% 1,000 ML IV ONE (07:36)
[2017-12-21] MEDS: HYDROMORPHONE 0.2MG/ML-SOD CHL 30ML PCA SYRINGE IV PRN (08:30)
[2017-12-21] MEDS: POTASSIUM CHLORIDE 20 MEQ TAB CR PO SCH (09:00)
[2017-12-21] MEDS: FLUOXETINE HCL 20 MG CAP PO SCH (09:00)
[2017-12-21] MEDS: CELECOXIB 100 MG CAP PO SCH (09:00)
[2017-12-21] MEDS: PANTOPRAZOLE 40 MG 10ML VIAL IV SCH ×2 (09:00→17:00)
[2017-12-21] MEDS: TIZANIDINE HCL 4 MG TAB PO SCH ×2 (09:00→17:00)
[2017-12-21 13:47] LABS: ANION GAP 13.2 mmol/L (8-16); BLOOD UREA NITROGEN 62 mg/dL (7-26); BUN/CREATININE RATIO 75 (6-25); CALCIUM 9.6 mg/dL (8.4-10.2); CARBON DIOXIDE 24 mmol/L (22-29); CHLORIDE 115 mmol/L (98-107); CREATININE, SERUM 0.83 mg/dL (0.57-1.11); EST GLOMERULAR FILTRATION RATE > 60 ML/MIN (60-); GLUCOSE 288 mg/dL (74-118); SODIUM 147 mmol/L (136-145)
[2017-12-21 14:01] LABS: POTASSIUM 5.2 mmol/L (3.5-5.1)
[2017-12-22] VITALS (90 sets, daily range): BP systolic 81–130; BP diastolic 42–114
[2017-12-22] MEDS: LEVALBUTEROL HCL SOLN NEBU 1.25 MG/3 ML NEB INH SCH ×5 (03:12→22:30)
[2017-12-22] MEDS: IPRATROPIUM BROMIDE 0.02% 2.5 ML NEB NEB SCH ×6 (03:12→22:30)
[2017-12-22] MEDS: MIDAZOLAM HCL 2 MG/2 ML VIAL IV PRN (04:27)
[2017-12-22] MEDS: METHYLPREDNISOLONE SOD SUCC 40 MG/ML VIAL IV SCH ×2 (05:38→18:00)
[2017-12-22 06:29] LABS: BASOPHILS # (AUTO) 0.1 (0.0-0.1); BASOPHILS % 0.3 % (0.0-1.0); HEMATOCRIT 40.5 % (34.2-44.1); HEMOGLOBIN 12.3 g/dL (12.0-16.0); LYMPHOCYTES # (AUTO) 0.5 (1.0-3.2); LYMPHOCYTES % 3.1 % (18.0-39.1); MEAN CORPUSCULAR HEMOGLOBIN 26.9 pg (28-32); MEAN CORPUSCULAR HGB CONC 30.4 g/dL (31-35); MEAN CORPUSCULAR VOLUME 88.6 fL (81-99); MONOCYTES % 6.2 % (4.4-11.3); NEUTROPHILS # (AUTO) 13.4 (2.1-6.9); PLATELET COUNT 106 x10e3/uL (140-360); RED BLOOD COUNT 4.57 x10e6/uL (3.6-5.1); RED CELL DISTRIBUTION WIDTH 22.2 % (11.7-14.4)
--- NOTE | 2017-12-22 06:35 | Diagnostic Imaging Report ---
EXAM: CHEST SINGLE (PORTABLE), AP 1 view ORDER DATE: 12/22/2017 7:00 AM Time stamp on exam: 0553 hours INDICATION: Bilateral pneumonia COMPARISON: AP view of the chest December 21, 2017 FINDINGS: LINES/TUBES: Stable tracheostomy and nasal/orogastric tube and left approach PICC. LUNGS: Stable bilateral airspace opacities. PLEURA: Increasing biapical pneumothoraces. HEART AND MEDIASTINUM: Stable appearance BONES AND SOFT TISSUES: Interval development of pneumomediastinum tracking into the bilateral neck. IMPRESSION: Increasing biapical pneumothoraces, now moderate in size with new pneumomediastinum. Findings discussed with the patient's ICU nurse December 22, 2017 at 0630 hours. Signed by: Dr. Sagrario Kelly M.D. on 12/22/2017 6:31 AM
[2017-12-22 07:03] LABS: ANION GAP 13.6 mmol/L (8-16); BLOOD UREA NITROGEN 44 mg/dL (7-26); BUN/CREATININE RATIO 66 (6-25); CALCIUM 9.8 mg/dL (8.4-10.2); CARBON DIOXIDE 26 mmol/L (22-29); CHLORIDE 110 mmol/L (98-107); CREATININE, SERUM 0.67 mg/dL (0.57-1.11); EST GLOMERULAR FILTRATION RATE > 60 ML/MIN (60-); GLUCOSE 153 mg/dL (74-118); POTASSIUM 4.6 mmol/L (3.5-5.1); SODIUM 145 mmol/L (136-145)
[2017-12-22] MEDS: PANTOPRAZOLE 40 MG 10ML VIAL IV SCH ×2 (09:00→17:00)
[2017-12-22] MEDS: TOPIRAMATE 100 MG TAB PO SCH ×3 (09:00→21:27)
[2017-12-22] MEDS: POTASSIUM CHLORIDE 20 MEQ TAB CR PO SCH (09:00)
[2017-12-22] MEDS: FLUOXETINE HCL 20 MG CAP PO SCH (09:00)
[2017-12-22] MEDS: CELECOXIB 100 MG CAP PO SCH (09:00)
[2017-12-22] MEDS: HEPARIN SOD (PORCINE) 5,000 UNIT/ML VIAL SC SCH ×2 (09:00→21:27)
[2017-12-22] MEDS: TIZANIDINE HCL 4 MG TAB PO SCH ×2 (09:00→17:00)
[2017-12-22] MEDS ORDERED: POTASSIUM CHLORIDE 20MEQ/15ML UDC ONE (09:14)
[2017-12-22] MEDS ORDERED: ALTEPLASE RECOMBINANT 2 MG/2 ML VIAL IV PRN (10:45)
[2017-12-22] MEDS: LEVALBUTEROL HCL SOLN NEBU 1.25 MG/3 ML NEB INH PRN (11:00)
[2017-12-22 11:02] LABS: BAND NEUTROPHILS % (MANUAL) 5 %; LYMPHOCYTES % (MANUAL) 8 % (19-48); MONOCYTES % (MANUAL) 2 % (3.4-9.0); NEUTROPHILS % (MANUAL) 85 % (40-74)
[2017-12-22 11:03] LABS: ANISOCYTOSIS SLIGHT; RBC MORPHOLOGY COMMENT ABNORMAL
[2017-12-22] MEDS: CEFEPIME HCL 1 GM VIAL IV SCH (13:00)
[2017-12-22] MEDS: VANCOMYCIN 1GM/NS 250 ML 250 ML IV SCH (13:00)
--- NOTE | 2017-12-22 15:45 | Progress Note ---
DATE: December 22, 2017 Today discussed the case with critical care. X-rays seem to be overall worse than before about 2 weeks ago, so I am concerned there may be some bacterial infection, so will add vancomycin and cefepime for the possibility of hospital-acquired pneumonia. Discussed with Dr. Stephen. Job#: [id number]
[2017-12-22] MEDS: [UNRECOGNIZED DRUG - REMARK] PO SCH (21:27)
[2017-12-22] MEDS: STRIBILD PO SCH (21:27)
[2017-12-22] MEDS: SIMVASTATIN 20 MG TAB PO SCH (21:27)
[2017-12-22] MEDS: PROPOFOL IV EMULSION 10MG/ML 100 ML IV SCH (22:31)
[2017-12-23] VITALS (90 sets, daily range): BP systolic 87–169; BP diastolic 25–104
[2017-12-23] MEDS: CEFEPIME HCL 1 GM VIAL IV SCH ×2 (01:37→16:31)
[2017-12-23] MEDS: IPRATROPIUM BROMIDE 0.02% 2.5 ML NEB NEB SCH ×5 (02:18→18:55)
[2017-12-23] MEDS: PROPOFOL IV EMULSION 10MG/ML 100 ML IV SCH ×2 (05:54→21:40)
[2017-12-23] MEDS: METHYLPREDNISOLONE SOD SUCC 40 MG/ML VIAL IV SCH ×2 (05:55→18:54)
--- NOTE | 2017-12-23 06:28 | Diagnostic Imaging Report ---
EXAM: CHEST SINGLE (PORTABLE), AP 1 view ORDER DATE: 12/23/2017 4:39 AM Time stamp on exam: 0500 hrs INDICATION: Pneumothorax COMPARISON: AP view of the chest December 22, 2017 FINDINGS: LINES/TUBES: Stable position of tracheostomy tube and nasal/orogastric tube. Stable left approach PICC. LUNGS: Increased opacity of both lungs likely a combination of atelectasis, pulmonary edema and/or acute lung injury. PLEURA: Worsening bilateral pneumothoraces, now large. HEART AND MEDIASTINUM: Stable appearance of cardiomediastinal silhouette. Extensive pneumomediastinum. BONES AND SOFT TISSUES: Interval development of diffuse subcutaneous emphysema. IMPRESSION: 1. Worsening bilateral pneumothoraces, now large. 2. Pneumomediastinum and interval development of extensive subcutaneous emphysema. 3. Opacification of the lungs likely a combination of atelectasis, pulmonary edema and/or acute lung injury. Signed by: Dr. Sagrario Kelly M.D. on 12/23/2017 6:24 AM
[2017-12-23] MEDS ORDERED: SODIUM CHLORIDE 0.9% 1000ML 1,000 ML IV PRN (06:30)
[2017-12-23 06:43] LABS: BASOPHILS # (AUTO) 0.1 (0.0-0.1); BASOPHILS % 0.3 % (0.0-1.0); HEMATOCRIT 39.9 % (34.2-44.1); HEMOGLOBIN 11.9 g/dL (12.0-16.0); LYMPHOCYTES # (AUTO) 0.3 (1.0-3.2); LYMPHOCYTES % 1.6 % (18.0-39.1); MEAN CORPUSCULAR HEMOGLOBIN 27.5 pg (28-32); MEAN CORPUSCULAR HGB CONC 29.8 g/dL (31-35); MEAN CORPUSCULAR VOLUME 92.1 fL (81-99); MONOCYTES % 5.2 % (4.4-11.3); NEUTROPHILS # (AUTO) 16.9 (2.1-6.9); PLATELET COUNT 126 x10e3/uL (140-360); RED BLOOD COUNT 4.33 x10e6/uL (3.6-5.1); RED CELL DISTRIBUTION WIDTH 22.5 % (11.7-14.4)
[2017-12-23 06:51] LABS: ANION GAP 14.6 mmol/L (8-16); BLOOD UREA NITROGEN 38 mg/dL (7-26); BUN/CREATININE RATIO 55 (6-25); CALCIUM 9.8 mg/dL (8.4-10.2); CARBON DIOXIDE 30 mmol/L (22-29); CHLORIDE 107 mmol/L (98-107); CREATININE, SERUM 0.69 mg/dL (0.57-1.11); EST GLOMERULAR FILTRATION RATE > 60 ML/MIN (60-); GLUCOSE 129 mg/dL (74-118); POTASSIUM 4.6 mmol/L (3.5-5.1); SODIUM 147 mmol/L (136-145)
[2017-12-23] MEDS: LEVALBUTEROL HCL SOLN NEBU 1.25 MG/3 ML NEB INH SCH ×4 (07:00→22:35)
[2017-12-23] MEDS ORDERED: DILTIAZEM HCL 5 MG/ML 5 ML VIAL IV STA (07:34)
[2017-12-23 08:03] LABS: BAND NEUTROPHILS % (MANUAL) 1 %; LYMPHOCYTES % (MANUAL) 1 % (19-48); METAMYELOCYTES % (MANUAL) 1 % (0-0); MONOCYTES % (MANUAL) 3 % (3.4-9.0); MYELOCYTES % (MANUAL) 1 % (0-0); NEUTROPHILS % (MANUAL) 93 % (40-74); NUCLEATED RED BLOOD CELLS 1
[2017-12-23 08:06] LABS: ANISOCYTOSIS SLIGHT; HYPOCHROMASIA SLIGHT; PLATELET ESTIMATE SLIGHTLY DECREASED; PLATELET MORPHOLOGY COMMENT FEW LARGE; STOMATOCYTES MODERATE
[2017-12-23 08:07] LABS: RBC MORPHOLOGY COMMENT ABNORMAL
[2017-12-23] MEDS ORDERED: LIDOCAINE 1% 5ML-MPF INJ ONE (10:15)
[2017-12-23] MEDS: HEPARIN SOD (PORCINE) 5,000 UNIT/ML VIAL SC SCH ×2 (11:53→21:55)
[2017-12-23] MEDS: CELECOXIB 100 MG CAP PO SCH (11:53)
[2017-12-23] MEDS: TOPIRAMATE 100 MG TAB PO SCH ×3 (11:53→21:55)
[2017-12-23] MEDS: POTASSIUM CHLORIDE 20 MEQ TAB CR PO SCH (11:53)
[2017-12-23] MEDS: TIZANIDINE HCL 4 MG TAB PO SCH ×2 (11:53→17:38)
[2017-12-23] MEDS: PANTOPRAZOLE 40 MG 10ML VIAL IV SCH ×2 (11:53→17:38)
[2017-12-23] MEDS: FLUOXETINE HCL 20 MG CAP PO SCH (11:53)
[2017-12-23] MEDS: VANCOMYCIN 1GM/NS 250 ML 250 ML IV SCH (16:31)
[2017-12-23] MEDS: HYDROMORPHONE 0.2MG/ML-SOD CHL 30ML PCA SYRINGE IV PRN (17:39)
[2017-12-23] MEDS: SIMVASTATIN 20 MG TAB PO SCH (20:30)
[2017-12-23] MEDS: [UNRECOGNIZED DRUG - REMARK] PO SCH (20:30)
[2017-12-23] MEDS: STRIBILD PO SCH (20:30)
[2017-12-24] VITALS (95 sets, daily range): BP systolic 63–159; BP diastolic 24–107
[2017-12-24] MEDS: CEFEPIME HCL 1 GM VIAL IV SCH ×2 (01:11→15:08)
[2017-12-24] MEDS: LEVALBUTEROL HCL SOLN NEBU 1.25 MG/3 ML NEB INH SCH ×6 (02:05→22:35)
[2017-12-24] MEDS: IPRATROPIUM BROMIDE 0.02% 2.5 ML NEB NEB SCH ×4 (02:05→18:25)
[2017-12-24] MEDS: PROPOFOL IV EMULSION 10MG/ML 100 ML IV SCH ×2 (02:15→06:33)
[2017-12-24] MEDS: METHYLPREDNISOLONE SOD SUCC 40 MG/ML VIAL IV SCH (05:49)
[2017-12-24 06:05] LABS: BASOPHILS # (AUTO) 0.1 (0.0-0.1); BASOPHILS % 0.4 % (0.0-1.0); HEMATOCRIT 36.2 % (34.2-44.1); HEMOGLOBIN 10.9 g/dL (12.0-16.0); LYMPHOCYTES # (AUTO) 0.6 (1.0-3.2); LYMPHOCYTES % 3.7 % (18.0-39.1); MEAN CORPUSCULAR HGB CONC 30.1 g/dL (31-35); MEAN CORPUSCULAR VOLUME 89.8 fL (81-99); MONOCYTES # (AUTO) 0.6 (0.2-0.8); NEUTROPHILS # (AUTO) 13.7 (2.1-6.9); NEUTROPHILS % 88.8 % (38.7-80.0); PLATELET COUNT 104 x10e3/uL (140-360); RED BLOOD COUNT 4.03 x10e6/uL (3.6-5.1); RED CELL DISTRIBUTION WIDTH 21.8 % (11.7-14.4)
[2017-12-24 06:25] LABS: ANION GAP 10.3 mmol/L (8-16); BLOOD UREA NITROGEN 27 mg/dL (7-26); BUN/CREATININE RATIO 48 (6-25); CALCIUM 9.1 mg/dL (8.4-10.2); CARBON DIOXIDE 33 mmol/L (22-29); CHLORIDE 104 mmol/L (98-107); CREATININE, SERUM 0.56 mg/dL (0.57-1.11); EST GLOMERULAR FILTRATION RATE > 60 ML/MIN (60-); GLUCOSE 109 mg/dL (74-118); POTASSIUM 4.3 mmol/L (3.5-5.1); SODIUM 143 mmol/L (136-145)
[2017-12-24 07:16] LABS: LYMPHOCYTES % (MANUAL) 5 % (19-48); MONOCYTES % (MANUAL) 1 % (3.4-9.0); MYELOCYTES % (MANUAL) 2 % (0-0); NEUTROPHILS % (MANUAL) 92 % (40-74)
[2017-12-24 07:17] LABS: HYPOCHROMASIA SLIGHT; PLATELET ESTIMATE MODERATELY DECREASED; PLATELET MORPHOLOGY COMMENT FEW LARGE; RBC MORPHOLOGY COMMENT ABNORMAL
[2017-12-24 07:18] LABS: ANISOCYTOSIS SLIGHT
[2017-12-24] MEDS ORDERED: MORPHINE SULFATE 2 MG/ML SYR IV PRN (08:15)
[2017-12-24] MEDS: MORPHINE SULFATE 2 MG/ML SYR IV PRN ×2 (08:40→20:40)
[2017-12-24] MEDS: CELECOXIB 100 MG CAP PO SCH (09:53)
[2017-12-24] MEDS: PANTOPRAZOLE 40 MG 10ML VIAL IV SCH ×2 (09:53→16:13)
[2017-12-24] MEDS: POTASSIUM CHLORIDE 20 MEQ TAB CR PO SCH (09:56)
[2017-12-24] MEDS: FLUOXETINE HCL 20 MG CAP PO SCH (09:56)
[2017-12-24] MEDS: TOPIRAMATE 100 MG TAB PO SCH ×3 (09:57→21:19)
[2017-12-24] MEDS: TIZANIDINE HCL 4 MG TAB PO SCH ×2 (10:03→16:13)
[2017-12-24] MEDS: HEPARIN SOD (PORCINE) 5,000 UNIT/ML VIAL SC SCH ×2 (10:04→21:09)
--- NOTE | 2017-12-24 11:09 | Diagnostic Imaging Report ---
PROCEDURE: A single AP view of the chest. COMPARISON: Portable chest 12/23/17. INDICATIONS: BILATERAL PNEUMONIA FINDINGS: Lines/tubes: Tracheostomy catheter is present with the tip projecting over the expected region of the trachea, position 4 cm from the garcia. Enteric feeding catheter is present with the tip extending below the inferior margin of the examination, likely within the gastric body. Left subclavian central venous catheter with tip projecting over the expected region of the superior vena cava. Lungs: The lungs are well inflated and clear. There is no evidence of pneumonia or pulmonary edema. Pleura: Small bilateral pleural effusions. Small right apical pneumothorax, measuring 1.1 cm and the right midclavicular line. Small left pneumothorax, measuring 0.9 cm along the left lateral chest wall. Heart and mediastinum: The heart and the mediastinum are unremarkable. Bones: No acute bony abnormality. Soft tissues: Diffuse subcutaneous soft tissue inflammatory changes, increased since the previous examination. IMPRESSION: Bilateral pneumothoraces, decreased since the previous examination. Dictated by: Brandon Orozco M.D. on 12/24/2017 at 11:19 Electronically approved by: Brandon Orozco M.D. on 12/24/2017 at 11:19
--- NOTE | 2017-12-24 12:46 | Progress Note ---
DATE: December 24, 2017 Ms. Alarcon is seen on rounds today. She is intubated. She is sedated on propofol. Has subcutaneous emphysema and some swelling to the face. She is on a vent. Whenever she is off sedation, she struggles and gets very anxious. Temperature 97.8, respirations 24, heart rate 79, blood pressure 102/63. White cell count 15.3, hemoglobin 10.9, hematocrit 36.2, platelets 104. Therapy-sanderson, really not able to do much given her current situation. I spoke with her daughter at length. At this point, they are looking about withdrawal of care. Therefore, I will sign off. I discussed with the patient's daughter if there are any changes, please feel free to call me back. Thank you for this opportunity. Job#: [id number] DENICE
[2017-12-24] MEDS: VANCOMYCIN 1GM/NS 250 ML 250 ML IV SCH (15:08)
[2017-12-24] MEDS: HYDROMORPHONE 0.2MG/ML-SOD CHL 30ML PCA SYRINGE IV PRN (19:57)
[2017-12-24] MEDS: STRIBILD PO SCH (21:18)
[2017-12-24] MEDS: SIMVASTATIN 20 MG TAB PO SCH (21:18)
[2017-12-24] MEDS: [UNRECOGNIZED DRUG - REMARK] PO SCH (21:19)
[2017-12-24] MEDS: MIDAZOLAM HCL 25 MG in SODIUM CHLORIDE 0.9% 50ML 45 ML IV PRN (22:50)
[2017-12-25] VITALS (80 sets, daily range): BP systolic 61–147; BP diastolic 37–78
[2017-12-25] MEDS: MORPHINE SULFATE 2 MG/ML SYR IV PRN ×5 (00:50→12:24)
[2017-12-25] MEDS: CEFEPIME HCL 1 GM VIAL IV SCH ×2 (01:00→13:40)
[2017-12-25] MEDS: LEVALBUTEROL HCL SOLN NEBU 1.25 MG/3 ML NEB INH SCH ×4 (02:30→19:15)
[2017-12-25] MEDS: IPRATROPIUM BROMIDE 0.02% 2.5 ML NEB NEB SCH ×4 (02:30→19:15)
[2017-12-25] MEDS: MIDAZOLAM HCL 25 MG in SODIUM CHLORIDE 0.9% 50ML 45 ML IV PRN ×4 (03:10→21:30)
[2017-12-25] MEDS: TIZANIDINE HCL 4 MG TAB PO SCH ×2 (09:00→17:15)
[2017-12-25] MEDS: FLUOXETINE HCL 20 MG CAP PO SCH (09:00)
[2017-12-25] MEDS: TOPIRAMATE 100 MG TAB PO SCH ×3 (09:00→20:24)
[2017-12-25] MEDS: PANTOPRAZOLE 40 MG 10ML VIAL IV SCH ×2 (09:00→17:15)
[2017-12-25] MEDS: CELECOXIB 100 MG CAP NG SCH (09:00)
[2017-12-25] MEDS: POTASSIUM CHLORIDE 20 MEQ TAB CR PO SCH (09:00)
[2017-12-25] MEDS: HEPARIN SOD (PORCINE) 5,000 UNIT/ML VIAL SC SCH (09:00)
[2017-12-25] MEDS ORDERED: POTASSIUM CHLORIDE 20MEQ/15ML UDC ONE (09:40)
[2017-12-25] MEDS: FUROSEMIDE INJ 10 MG/ML 4 ML VIAL IV SCH (10:35)
[2017-12-25] MEDS: VANCOMYCIN 1GM/NS 250 ML 250 ML IV SCH ×2 (11:00→23:45)
--- NOTE | 2017-12-25 11:06 | Diagnostic Imaging Report ---
PROCEDURE: A single AP view of the chest. COMPARISON: 12/24/17 INDICATIONS: INTUBATED, NG TUBE, SUBCUTANEOUS AIR, EMPHASYMA FINDINGS: Lines/tubes: Stable tracheostomy and nasogastric tubes. Lungs: Low lung volumes. Diffuse subcutaneous emphysema limits evaluation of the lung chris. Pleura: There is no significant pleural effusion or definite visible pneumothorax. Heart and mediastinum: The cardiac silhouette is enlarged. Bones: No acute bony abnormality. Diffuse subcutaneous emphysema appears slightly decreased in number to prior exam. IMPRESSION: Diffuse subcutaneous emphysema limits evaluation of the lung chris. Underlying pulmonary edema or pneumonia cannot be excluded. Diffuse chest wall and neck base subcutaneous emphysema, appears slightly decreased when compared to prior x-ray. Dictated by: Jamey Lo M.D. on 12/25/2017 at 11:16 Electronically approved by: Jamey Lo M.D. on 12/25/2017 at 11:16
[2017-12-25] MEDS: PROPOFOL IV EMULSION 10MG/ML 100 ML IV SCH (12:30)
[2017-12-25 13:25] LABS: ABG PH 7.24 (7.31-7.41)
[2017-12-25 13:26] LABS: ABG PCO2 96 mmHg (41-51); ABG PO2 54 mmHg (80-105)
[2017-12-25 13:27] LABS: ABG HCO3 41 mmol/L (23-28)
--- NOTE | 2017-12-25 15:14 | Progress Note ---
DATE: INFECTIOUS DISEASE PROGRESS NOTE SUBJECTIVE: Ms. Alarcon is doing worse. She is on FIO2 of 100% now. She does have a subcutaneous pneumothorax. I have met with the family. The patient is nonverbal. The patient has subcutaneous emphysema, swelling of the face, the neck and the chest. Patient is going into complete ARDS, is still running fever. Oral cultures remain negative. Her bronchial culture showed Corynebacterium striatum. She is not responding to any antibiotic or any medical treatment. Discussed with the family. Her laboratory data also reviewed. Her white count is 15.3, hemoglobin of 10.4. Her sodium 143 and potassium 4.3, creatinine 0.56. IMPRESSION 1. Respiratory failure getting progressively worse. 2. Pulmonary fibrosis/acute respiratory distress syndrome, now with a subcutaneous pneumothorax. 3. The patient has underlying history of human immunodeficiency virus. The prognosis is grim. Family is aware. They want to continue the current for a couple of days. If no improvement, to consider withdrawal of life support. Job#: [id number]
[2017-12-25 16:46] LABS: ABG PO2 63 mmHg (80-105)
[2017-12-25 16:50] LABS: ABG HCO3 41 mmol/L (23-28); ABG PCO2 104 mmHg (41-51); ABG PH 7.19 (7.31-7.41); ABG PO2 63 mmHg (80-105)
[2017-12-25] MEDS: SIMVASTATIN 20 MG TAB PO SCH (20:24)
[2017-12-25] MEDS: STRIBILD PO SCH (20:24)
[2017-12-25] MEDS: [UNRECOGNIZED DRUG - REMARK] PO SCH (20:24)
[2017-12-25] MEDS: HYDROMORPHONE 0.2MG/ML-SOD CHL 30ML PCA SYRINGE IV PRN (22:50)
[2017-12-26] VITALS (50 sets, daily range): BP systolic 40–130; BP diastolic 29–71
[2017-12-26] MEDS: CEFEPIME HCL 1 GM VIAL IV SCH ×2 (01:09→13:20)
[2017-12-26] MEDS: LEVALBUTEROL HCL SOLN NEBU 1.25 MG/3 ML NEB INH SCH ×7 (03:30→15:26)
[2017-12-26] MEDS: MIDAZOLAM HCL 25 MG in SODIUM CHLORIDE 0.9% 50ML 45 ML IV PRN ×3 (04:42→13:35)
[2017-12-26 06:00] LABS: ABG PH 7.19 (7.31-7.41)
[2017-12-26 06:01] LABS: ABG HCO3 41 mmol/L (23-28); ABG PCO2 104 mmHg (41-51)
[2017-12-26] MEDS: IPRATROPIUM BROMIDE 0.02% 2.5 ML NEB NEB SCH ×3 (07:20→11:14)
--- NOTE | 2017-12-26 08:39 | Diagnostic Imaging Report ---
PROCEDURE: A single AP view of the chest. COMPARISON: Portable chest 12/25/2017. INDICATIONS: LUNG/ETT STATUS FINDINGS: Lines/tubes: Tracheostomy catheter is present with the tip projecting over the expected region of the trachea, positioned 4 cm from the garcia. Enteric feeding catheter with tip projecting over the expected region of the distal stomach. Left peripherally inserted central venous catheter with tip projecting over the expected region of the superior vena cava. Lungs: Bilateral multifocal airspace opacities. Pleura: Small bilateral pleural effusions. No pneumothorax. Heart and mediastinum: The heart and the mediastinum are unremarkable. Bones: No acute bony abnormality. Degenerative changes of the thoracic spine. Soft tissues: Continued bilateral diffuse subcutaneous emphysema along the chest wall and neck. IMPRESSION: Bilateral airspace opacities may represent edema or pneumonia. Bilateral diffuse subcutaneous emphysema. Dictated by: Brandon Orozco M.D. on 12/26/2017 at 8:48 Electronically approved by: Brandon Orozco M.D. on 12/26/2017 at 8:48
[2017-12-26] MEDS ORDERED: DOCUSATE SODIUM LIQD 100 MG/10 ML UDC NG SCH (09:00)
[2017-12-26] MEDS: PANTOPRAZOLE 40 MG 10ML VIAL IV SCH (09:30)
[2017-12-26] MEDS ORDERED: POTASSIUM CHLORIDE 20MEQ/15ML UDC ONE ×2 (09:35→10:05)
[2017-12-26] MEDS: TIZANIDINE HCL 4 MG TAB PO SCH (09:50)
[2017-12-26] MEDS: CELECOXIB 100 MG CAP NG SCH (09:50)
[2017-12-26] MEDS: FLUOXETINE HCL 20 MG CAP PO SCH (09:50)
[2017-12-26] MEDS: POTASSIUM CHLORIDE 20 MEQ TAB CR PO SCH (09:50)
[2017-12-26] MEDS: TOPIRAMATE 100 MG TAB PO SCH ×2 (09:50→15:00)
[2017-12-26] MEDS: FUROSEMIDE INJ 10 MG/ML 4 ML VIAL IV SCH (10:25)
[2017-12-26] MEDS: VANCOMYCIN 1GM/NS 250 ML 250 ML IV SCH (11:30)
[2017-12-26] MEDS ORDERED: LORAZEPAM 1 MG TAB PO SCH (12:00)
[2017-12-26] MEDS: MORPHINE SULFATE 2 MG/ML SYR IV PRN (14:08)
[2017-12-26] MEDS ORDERED: TRIMETHOPRIM/SULFAMETHOXAZOLE 160-800 MG TAB PO SCH (15:00)
[2017-12-26] MEDS ORDERED: TRIMETHOPRIM/SULFAMETHOXAZOLE 160-800 MG TAB ONE (15:04)
== END 2017-12-26 19:54 | disposition expired | DRG 4 ==
LOC: ER 11:23 → ERHOLD 15:39 → MED/SURG2 11-27 19:58 → IMCU 11-28 10:29 → ICU 12-01 09:44 → IMCU 12-04 01:43 → ICU 12-09 10:51
PROVIDERS: ADMIT Internal Medicine; ATTEND Internal Medicine
PROC: 5A09457 Assistance with Respiratory Ventilation, 24-96 Consecutive Hours, Continuous Positive Airway Pressure (ICD-10-PCS; 2017-11-28)
PROC: 02HV33Z Insertion of Infusion Device into Superior Vena Cava, Percutaneous Approach (ICD-10-PCS; 2017-12-01)
PROC: 0BH17EZ Insertion of Endotracheal Airway into Trachea, Via Natural or Artificial Opening (ICD-10-PCS; 2017-12-01)
PROC: 5A1945Z Respiratory Ventilation, 24-96 Consecutive Hours (ICD-10-PCS; 2017-12-01)
PROC: 0B9C8ZX Drainage of Right Upper Lung Lobe, Via Natural or Artificial Opening Endoscopic, Diagnostic (ICD-10-PCS; 2017-12-02)
PROC: 5A1955Z Respiratory Ventilation, Greater than 96 Consecutive Hours (ICD-10-PCS; principal; 2017-12-09)
PROC: 0BH18EZ Insertion of Endotracheal Airway into Trachea, Via Natural or Artificial Opening Endoscopic (ICD-10-PCS; 2017-12-09)
PROC: 0B9J8ZX Drainage of Left Lower Lung Lobe, Via Natural or Artificial Opening Endoscopic, Diagnostic (ICD-10-PCS; 2017-12-13)
PROC: 0B9H8ZX Drainage of Lung Lingula, Via Natural or Artificial Opening Endoscopic, Diagnostic (ICD-10-PCS; 2017-12-13)
PROC: 0B110F4 Bypass Trachea to Cutaneous with Tracheostomy Device, Open Approach (ICD-10-PCS; 2017-12-19)
PROC: 5A1955Z Respiratory Ventilation, Greater than 96 Consecutive Hours (ICD-10-PCS; 2017-12-19)
DX: B20 Human immunodeficiency virus [HIV] disease (principal); R65.21 Severe sepsis with septic shock; A41.9 Sepsis, unspecified organism; B59 Pneumocystosis; T17.890A Other foreign object in other parts of respiratory tract causing asphyxiation, initial encounter; J96.01 Acute respiratory failure with hypoxia; J80 Acute respiratory distress syndrome; B37.0 Candidal stomatitis; Z99.11 Dependence on respirator [ventilator] status; B00.2 Herpesviral gingivostomatitis and pharyngotonsillitis; J93.83 Other pneumothorax; E87.70 Fluid overload, unspecified; J98.2 Interstitial emphysema; F17.200 Nicotine dependence, unspecified, uncomplicated; I46.9 Cardiac arrest, cause unspecified; F32.9 Major depressive disorder, single episode, unspecified; E11.9 Type 2 diabetes mellitus without complications; Z66 Do not resuscitate; Z51.5 Encounter for palliative care; E78.5 Hyperlipidemia, unspecified; R53.81 Other malaise; E87.6 Hypokalemia; F41.9 Anxiety disorder, unspecified; R19.7 Diarrhea, unspecified; D63.8 Anemia in other chronic diseases classified elsewhere; Z78.1 Physical restraint status; E66.9 Obesity, unspecified; Z68.32 Body mass index [BMI] 32.0-32.9, adult
CPT/HCPCS: 36415; 36569; 36600; 71045; 71046; 71250; 74018; 80048; 80053; 80202; 82805; 82947; 82948; 83605; 83735; 83880; 83970; 84100; 84443; 85025; 85610; 85730; 86361; 87015; 87040; 87070; 87102; 87116; 87205; 87206; 87335; 87400; 87493; 88112; 88305; 88312; 89051; 93005; 93306; 94002; 94003; 94640; 94660; 96361; 96365; 96366; 96372; 97139; 99284; J0171; J0330; J0456; J0692; J0696; J1450; J1644; J1940; J2250; J2270; J2405; J2543; J2920; J2997; J3370; J7030; J7050; J7070; J7799